=== PATIENT | female | born 1985 | race Asian ===

== ENCOUNTER 2025-01-05 17:18 | Inpatient (IN) ==
[2025-01-05 17:46] LABS: HCT - HEMATOCRIT 38.9 % (37.0-47.0); HGB - HEMOGLOBIN 13.0 g/dL (12.0-16.0); MEAN PLATELET VOLUME 9.9 fL (7.9-10.8); NRBC ABSOLUTE COUNT (AUTO) 0.00 x10^3/uL; NUCLEATED RED BLOOD CELLS AUTO 0.0 /100WBC; PLT - PLATELET COUNT 214 10^3/uL (130-450); RED CELL DISTRIBUTION WIDTH 13.2 % (12.0-15.0)
[2025-01-05 18:04] LABS: ALT ALANINE AMINOTRANSFERASE 16.0 IU/L (10-60); AST ASPARTATE AMINOTRANSFERASE 25.0 IU/L (10-42); BUN - BLOOD UREA NITROGEN 12.0 mg/dL (6-20); CARBON DIOXIDE - CO2 25.0 mmol/L (21-32); CREATININE 0.9 mg/dL (0.6-1.3); GFR - MDRD 70.0 (>89)
[2025-01-05] MEDS ORDERED: SODIUM CHLORIDE FLUSH 0.9% 10 ML SYRINGE IVP PRN (19:16)
[2025-01-05] MEDS ORDERED: hydrALAZINE INJ 20 MG/ML VIAL IVP PRN (19:16)
[2025-01-05] MEDS ORDERED: LABETALOL 20 MG/4 ML SYRINGE IVP PRN ×3 (19:16)
[2025-01-05] MEDS ORDERED: fentaNYL 100 MCG/2 ML VIAL IVP PRN (19:20)
[2025-01-05] MEDS ORDERED: OXYTOCIN 10 UNIT/ML VIAL IM PRN (19:20)
[2025-01-05] MEDS ORDERED: TERBUTALINE 1 MG/ML VIAL SUBQ PRN (19:20)
[2025-01-05] MEDS ORDERED: CARBOPROST TROMETHAMINE 250 MCG/ML VIAL IM PRN (19:20)
[2025-01-05] MEDS ORDERED: LACTATED RINGERS 1,000 ML IV PRN (19:20)
[2025-01-05 19:27] LABS: GLUCOSE, URINE (UA) NEGATIVE (NEGATIVE); KETONES,URINE (UA) NEGATIVE (NEGATIVE); OCCULT BLOOD,URINE NEGATIVE (NEGATIVE)
[2025-01-05] MEDS ORDERED: FLUTICASONE NASAL SPRAY NAS PRN (19:28)
--- NOTE | 2025-01-05 19:31 | HISTORY & PHYSICAL EXAMINATION ---
Admit History : 1 Parity: 0 Premature: 0 Ectopic: 0 : 0 Care: positive [facility] Risk/History: positive None Complications This : positive Pre-eclampsia and Other (Advanced maternal age) Smoking Status: Never smoker Mother's Labs Mother's Blood Type: positive B Mother's RH: positive Positive GBS: positive Group B Strep Positive Rubella Status: positive Immune Other Maternal History Other Maternal History: Patient is a 39 yo at 38+5 wks, who came in to [facility] triage today for NST, serial BP's, and repeat preE labs. She saw Dr. Marcelino yesterday and previously had a dx of suspected gestational HTN. Yesterday, she had a new elevated urine prot/cr at 0.3. In triage today, BP's persistently 140s/90s with outlier 150 SBP and 103 DBP. Patient without headache, concerning visual changes, or abdominal pain. She denies regular/painful ctx, leakage of fluid, vaginal bleeding, or movement concerns. Specific Issues/Plans In the event of an emergency, ACCEPTS the administration of blood products OB hx: Medical Hx: no issues Surgical Hx: no surgery Social Hx: from [facility], one of 10 daughters. Norm is in [employer]. first baby for both. Family Hx: ischemic heart disease, hypertension mother Allergies: none Medications: ASA, PNV, LMP:04/09/2024 RYDER by LMP: 01/14/2025 U/S: Final RYDER: 01/13/2025 Pre- weight: 97 BMI: 22.31 Blood type: B+ Antibody screen: neg CBC: PLT HCT HGB 11.8/35.7 262 Rubella: immune VZV: immune HBsAg: Neg HepC: Neg RPR/AB-EIA: not done, was ordered HIV: Neg Flu: COVID: PAP: 06/13/24 WNL HPV neg GC/CT: neg HSV: denies self/partner Genetic Testing: AFP neg Mat21 neg, male FAS: 08/29/24 Placenta: anterior, no previa Cord: 3VC REMIGIO: WNL EFW: na per report EPDS: 2 50gm GCT: 93 3 hr GTT: TDAP: 11/15/2024 Breast Pump: has one 3rd trimester H/H 14.2/40.9 PLT 318 3rd trimester RPR: NR RSV: out of range GBS: POSITIVE Delivery plan: contraception:Natural family-planning/condoms HPI Current : Current EDU 01/14/25 Gestation 38 Weeks and 5 Days Vital Signs Pulse Rate 60 01/05/25 17:37 Respiratory Rate 16 01/05/25 17:37 NST Procedure NST Procedure: NST Procedure Start Date 01/05/25 Start Time 17:35 Stop Time 18:10 Vibroacoustic Stimulation Used No Patient States Movement Yes Results and Plan Findings/Impression: Baseline 130s, mod variability, + accels, no decels Tower: Rare/infrequent ctx noted Meds/Allgy Home Medications Ambulatory Orders Medication Instructions Recorded Confirmed aspirin 81 mg tablet,delayed 81 mg PO QDAY 11/30/24 release (Adult Aspirin Regimen) docusate calcium 240 mg capsule 240 mg PO QDAY 5 01/04/25 docusate sodium 100 mg capsule 100 mg PO QDAY 11/30/24 01/04/25 (Colace) fluticasone propionate 50 1 spray intranasal QDAY PRN 11/30/24 01/04/25 mcg/actuation nasal spray,suspension (Flonase Allergy Relief) loratadine 10 mg tablet (Claritin) 10 mg PO Q24H 11/3001/04/25 vitamins-iron fumarate 65 1 tab PO QAM 01/04/25 mg iron-folic acid 1 mg tablet Allergies Allergies Allergy/AdvReac Type Severity Reaction Status Date / Time No Known Drug Allergies Allergy Verified 12/31/24 14:43 PFSH Active Problems All Active Problems (Updated 01/05/25 @ 19:44 by Beth Naranjo MD) Group B streptococcal carriage complicating (Acute) Elderly primigravida in third trimester (Acute) 38 weeks gestation of (Acute) Pre-eclampsia in third trimester (Acute) Supervision of elderly primigravida (Acute) 37 weeks gestation of (Acute) Elevated blood pressure reading without diagnosis of hypertension (Acute) Medical History Medical History (Updated 01/05/25 @ 19:44 by Beth Naranjo MD) Family history of ischemic heart disease Exposure to chickenpox Family History Family History (Updated 12/04/24 @ 13:50 by Debbie Santos RN) Maternal grandmother High blood pressure Mother High blood pressure Father Diabetes Social History Social History (Updated 11/30/24 @ 14:31 by Sara Smith MA) Smoking Status: Never smoker Second hand tobacco smoke exposure: No Do you dip or chew tobacco?: No Do you vape?: No Living arrangement: At home Marital Status: Living Condition: With spouse/s.o. ETOH Use: None POLST Patient has POLST: No POLST CPR Status: Attempt Resuscitation (CPR) Level of Medical Intervention: Full Treatment Review of Systems Status of ROS: 10 or more systems reviewed and unremarkable except as noted in history and below Physical Abdominal Exam Vital Signs: Pulse Resp 60 16 01/05/25 17:37 01/05/25 17:37 Contraction Frequency (min/apart): Rare to no contractions Monitoring Heart Rate Baseline: 130s Strip Review: positive Category I Presentation Presentation: positive Vertex (Limited bedside US performed to verify cephalic; REMIGIO 9.3 cm) Vaginal Exam Membranes: positive Membranes intact Dilation (in cm): 1.5 Effacement (%): 50 Station: positive -3 Cervical Position: positive Midposition Speculum Exam Speculum Exam Performed: positive Yes Other Notes Labor Progress Note/Additional Text: OB Limited US: Cephalic presentation, LOT with spine at maternal left. REMIGIO 9.3 cm. Procedure note for insertion of cervical ripening balloon: discussed procedure, and consent form reviewed and signed. Attempted insertion digitally but unable to fully pass balloon through cervix. Spec then inserted, and cervix swabbed with betadine x 3. Balloon then passed easily using a ring forcep. Balloon filled with 30 ml of sterile water, then gently pulled caudad to ensure balloon resting at inner cervix. Speculum was removed, and digital exam verified intrauterine placement. Moderate bloody show was noted after insertion then stopped (approx 10 ml). No ongoing blood loss noted. Pt tolerated procedure well and had mild discomfort at RLQ afterwards (expected following insertion). No complications occurred. Plan for Labor Plan For Labor I expect patient to be DC'd or transferred within 96 hours.: Yes Plan for Labor: Planning natural as much as possible Conclusion/Plan Problem List (1) Pre-eclampsia in third trimester: Plan: at 38+5 wks with preeclampsia without severe features. Given gestational age > 37 wks, induction of labor recommended. Pt favoring natural childbirth and had wished to await natural onset of labor. I reviewed with her and her partner the potential complications of preeclampsia (eclampsia; severe HTN that could lead to stroke, heart attack, and/or placental abruption; and/or development of end-organ disease [HELLP]). With that, we discussed recommended medical induction/labor course and reviewed alternatives being membrane sweeping only, outpatient cervical ripening with balloon (with plan to start induction in hospital after 12 hrs), or medical induction tonight. The patient favored the balloon but was worried about risk of ROM, bleeding, or concerns. We then discussed placement of balloon then admission to Observation in hospital for intermittent monitoring in case she has pain or concerns. She opted for this plan, and cervical ripening balloon was placed at 1905 without complications. - Admit to Observation; if patient desires, may d/c to home tonight for comfort (if tracing and BP's reassuring) but plan to initiate medical induction vs augmentation tomorrow morning. Admit to Inpatient at that time. - Maintain ripening balloon for 12 hrs or less with plan to remove in morning if it has not passed spontaneously by that time. - Intermittent monitoring Q 4 hrs overnight, then plan for continuous monitoring if medical interventions started. - Place IV and obtain admission labs: type and screen, RPR. - Repeat CMP, CBC in am - OB admission orders completed, including prn pain medications and antihypertensives - GBS prophylaxis with Ampicillin ordered to start once in active labor or SROM occurs. (2) Group B streptococcal carriage complicating : (3) Elderly primigravida in third trimester: (4) 38 weeks gestation of : Lab Results Lab results reviewed: Yes 01/05/25 17:41 01/05/25 17:41
[2025-01-05 19:32] LABS: SQUAMOUS EPITHELIAL CELL,UR FEW Squamous (<= Few)
[2025-01-05] MEDS ORDERED: CETIRIZINE 10 MG TABLET PO PRN (19:34)
[2025-01-05] MEDS ORDERED: MORPHINE 10 MG/ML VIAL IM PRN (19:56)
[2025-01-05] MEDS ORDERED: PROCHLORPERAZINE 10 MG/2 ML VIAL IVP PRN (19:56)
[2025-01-05] MEDS ORDERED: NALBUPHINE 10 MG/ML AMP IVP PRN (20:12)
[2025-01-05] MEDS ORDERED: ACETAMINOPHEN 650 MG SUPP PR PRN (20:12)
[2025-01-05] MEDS ORDERED: NIFEdipine ER 30 MG TABLET PO SCH (20:15)
[2025-01-05] MEDS: LABETALOL 100 MG TABLET PO SCH (20:47)
[2025-01-05] MEDS ORDERED: AMPICILLIN 1 GM in SODIUM CHLORIDE 0.9% MINIBAG 100 ML IV SCH (23:45)
[2025-01-06] MEDS ORDERED: AMPICILLIN 2 GM in SODIUM CHLORIDE 0.9% MINIBAG 100 ML IV ONE ×2 (01:45→07:15)
[2025-01-06] MEDS ORDERED: AMPICILLIN 1 GM in SODIUM CHLORIDE 0.9% MINIBAG 100 ML IV SCH (06:00)
[2025-01-06] MEDS: AMPICILLIN 2 GM in SODIUM CHLORIDE 0.9% MINIBAG 100 ML IV ONE (07:25)
[2025-01-06] MEDS ORDERED: BUPIVACAINE 0.25% PF 10 ML VIAL ONE (07:45)
[2025-01-06] MEDS ORDERED: fentaNYL 100 MCG/2 ML VIAL ONE ×2 (07:45→13:59)
[2025-01-06] MEDS ORDERED: ROPIVACAINE 0.2% 200 MG/100 ML BAG EP ONE (07:46)
[2025-01-06] MEDS ORDERED: ONDANSETRON 4 MG/2 ML VIAL ONE ×2 (08:05→14:33)
[2025-01-06] MEDS ORDERED: ONDANSETRON 4 MG/2 ML VIAL IVP PRN ×3 (08:11→16:25)
[2025-01-06] MEDS: ONDANSETRON 4 MG/2 ML VIAL IVP PRN (08:50)
[2025-01-06] MEDS: SODIUM CHLORIDE FLUSH 0.9% 10 ML SYRINGE IVP SCH (08:52)
[2025-01-06 09:24] LABS: HCT - HEMATOCRIT 39.4 % (37.0-47.0); HGB - HEMOGLOBIN 13.0 g/dL (12.0-16.0); MEAN PLATELET VOLUME 10.4 fL (7.9-10.8); NRBC ABSOLUTE COUNT (AUTO) 0.00 x10^3/uL; NUCLEATED RED BLOOD CELLS AUTO 0.0 /100WBC; PLT - PLATELET COUNT 205 10^3/uL (130-450); RED CELL DISTRIBUTION WIDTH 13.2 % (12.0-15.0)
[2025-01-06 09:49] LABS: ALT ALANINE AMINOTRANSFERASE 16.0 IU/L (10-60); AST ASPARTATE AMINOTRANSFERASE 27.0 IU/L (10-42); BUN - BLOOD UREA NITROGEN 12.0 mg/dL (6-20); CARBON DIOXIDE - CO2 22.0 mmol/L (21-32); CREATININE 0.8 mg/dL (0.6-1.3); GFR - MDRD 80.0 (>89)
[2025-01-06] MEDS ORDERED: METOCLOPRAMIDE 10 MG/2 ML VIAL IVP PRN (10:13)
[2025-01-06] MEDS ORDERED: ROPIVACAINE 0.2% 200 MG/100 ML BAG EP PRN (10:13)
[2025-01-06] MEDS ORDERED: NALOXONE 0.4 MG/ML VIAL IVP PRN ×3 (10:13→16:25)
[2025-01-06] MEDS ORDERED: ePHEDrine 50 MG/ML VIAL IVP PRN ×2 (10:13→16:25)
[2025-01-06] MEDS ORDERED: NALBUPHINE 10 MG/ML AMP IVP PRN (10:13)
--- NOTE | 2025-01-06 10:25 | PROVIDER PROGRESS NOTE ---
Labor Progress Note Uterine Monitoring Uterine Monitoring Mode: positive External toco Contraction Frequency (min/apart): Q 6-7 min Contraction Intensity: positive Moderate Uterine Resting Tone: positive Soft Monitoring Monitor Mode: positive External ultrasound Heart Rate Baseline: 140 Heart Rate Variability: positive Minimal (0-5 bpm) Accelerations: positive Absent (10 x 30 sec accel noted during cervical exam) Decelerations: positive Early, Late and Recurrent (>50% x20 min) Strip Review: positive Category II (Intermittent then more frequent early decels noted until approx 0900; since epidural insertion, recurrent late decels noted) Vaginal Exam Dilation (in cm): 5.5 Effacement (%): 80 Station: 0 Cervical Position: Anterior Labor Progress Note Labor Progress Note/Additional Text: * S/ Overnight, patient had little rest due to painful contractions. She was given nitrous, then this morning requested an epidural. Silvestre fell out overnight, and she was 4/70/-2 around 0645 this morning. Epidural was placed around 0830. She noticed some fluid leakage around the time of the epidural, but her pad appeared dry. She is now comfortable but notes increased shaking. O/ Afeb, VS - BPs mildly to moderately elevated overnight, 110-120s/70s since e pidural, now returning to mildly elevated FHT: Baseline 140's now with absent to minimal variability. Recurrent lates were present, and IVF bolus 500 ml given. Ephedrine considered, then BP started to return to pre-epidural. Lates now improving and some with early decel appearance [place]: Ctx Q 6-7 min, now Q 3-4 spontaneously Cvx: 5.5/80/0; unable to palpate amnion; 10 x 30 sec accel noted at time of cervical exam AM labs: see chart; no acute changes in PLT, LFTs, or creatining A/P 38+6 wks here for IOL for preE without severe features. Induction initiated with cervical ripening balloon, now progressing spontaneously without medical intervention and following suspected SROM around 0830. Pt having tremors suggestive of transition and may be rapidly progressing in labor. FHT cat 2 - currently absent to minimal variability but decels have resolved. BP nml to mildly elevated at present. Ordered labetalol 200 mg tid last evening, and last dose was around 0600 this morning. - O2 (5-6 L via NRB) in place and will continue until FHT improves - Ampicillin started for GBS pos; dose #2 due at 1100 - If no improvement in variability, consider repeat cervical exam 1 hr from last to attempt scalp stim - Cont BP monitoring; no severe pressures noted. To avoid recurrent relative hypotension, hold labetalol dose unless persistently 140/90s or more.
[2025-01-06] MEDS: AMPICILLIN 1 GM in SODIUM CHLORIDE 0.9% MINIBAG 100 ML IV SCH (11:12)
[2025-01-06] MEDS ORDERED: ACETAMINOPHEN 650 MG SUPP PR PRN (11:44)
--- NOTE | 2025-01-06 11:48 | PROVIDER PROGRESS NOTE ---
Subjective Prog Note Date Prog Note Date: 01/06/25 Prog Note Time: 11:46 Subjective Subjective: S/ Patient comfortable but continues to have persistent tremors. She notes some slight increased pain/pressure at the lower abdomen. O/ T 102, VS - BPs mildly elevated FHT: Baseline 150-160's still with absent to minimal variability. No recurrent decels present. + scalp stim (10 bpm x 1 min) during exam. [place]: Ctx Q 2-3 min spontaneously Cvx: 7/80/0; small gush of watery discharge present (blood-tinged); 10 x 60 sec accel noted at time of cervical exam A/ (1) 38+6 wks here for IOL for preE without severe features. Progressing very well spontaneously since cervical ripening balloon out and SROM around 0830 this am. FHT cat 2 (absent to min variability, but decels have resolved, and scalp stim noted on exam). (2) Fever 102 with rising heart rate baseline - suspect intra-amniotic infection (3) BPs mildly elevated with no si/sx of preE with severe features P/ - Cont Ampicillin. Add gentamicin 5 mg/kg for tx of chorio. Tylenol 1000 mg PO now + ice packs to improve decrease maternal temp. This may also help improve FHT. Discussed dx with patient and spouse and likelihood that the baby will require antibiotics after . - Cont BP monitoring; no severe pressures noted. To avoid recurrent relative hypotension, hold labetalol dose unless persistently 140/90s or more. Current Medications Current Medications Current Medications: Current Medications Generic Name Dose Route Start Last Admin Trade Name Freq PRN Reason Stop Dose Admin Acetaminophen 650 mg 01/05/25 20:12 Acetaminophen 650 Mg Supp CO Q6HR PRN Pain or Fever > 38C (100.4F) Carboprost Tromethamine 250 mcg 01/05/25 19:20 Carboprost Tromethamine 250 Mcg/Ml Vial IM .ONCE PRN Hemorrhage Cetirizine HCl 10 mg 01/05/25 19:34 Cetirizine 10 Mg Tablet PO Q24H PRN Allergy Symptoms Diphenhydramine HCl 12.5 - 25 mg 01/06/25 10:13 Diphenhydramine Inj 50 Mg/Ml Vial IVP Q6HR PRN ITCHING Ephedrine Sulfate 5 mg 01/06/25 10:13 Ephedrine 50 Mg/Ml Vial IVP Q5M PRN For SBP<100;give until SBP>100 Fentanyl 50 mcg 01/05/25 19:20 Fentanyl 100 Mcg/2 Ml Vial IVP Q1H PRN Severe Pain (score 7-10) Fluticasone Propionate 1 sprays 01/05/25 19:28 Fluticasone Nasal [place] WALTER DAILY PRN Allergy Symptoms Hydralazine HCl 10 mg 01/05/25 19:16 Hydralazine Inj 20 Mg/Ml Vial IVP .ONCE PRN SBP> or= 160 OR DBP> or= 110 Hydralazine HCl 5 - 10 mg 01/05/25 19:16 Hydralazine Inj 20 Mg/Ml Vial IVP Q20M PRN SBP> or= 160 OR DBP> or= 110 Protocol Lactated Ringer's 500 mls @ 999 mls/hr 01/05/25 19:20 Lr IV PRN PRN Heart Rate Abnormalities Oxytocin/Sodium Chloride 500 mls @ 999 mls/hr 01/05/25 19:20 Pitocin/Sodium Chloride IV PRN PRN POST- HEMORR PREVENTION Protocol 999 MILLIUNIT/MIN Tranexamic Acid 1,000 mg in 100 mls @ 600 mls/hr 01/05/25 19:20 Tranexamic 1,000 Mg/100ml-Nacl IV Q30M PRN EBL >1200mL and within 3hr Ampicillin Sodium 1 gm/ Sodium 100 mls @ 200 mls/hr 01/06/25 12:00 01/06/25 11:12 Chloride IV 200 mls/hr Q4H JONH Administration Ropivacaine 200 mg in 100 mls @ 0 mls/hr 01/06/25 10:13 Naropin 0.2% EP PRN PRN PAIN Protocol Per Protocol Labetalol HCl 20 mg 01/05/25 19:16 Labetalol 20 Mg/4 Ml Syringe IVP .ONCE PRN SBP> or= 160 OR DBP> or= 110 Labetalol HCl 20 - 80 mg 01/05/25 19:16 Labetalol 20 Mg/4 Ml Syringe IVP Q10M PRN SBP> or= 160 OR DBP> or= 110 Protocol Labetalol HCl 20 - 40 mg 01/05/25 19:16 Labetalol 20 Mg/4 Ml Syringe IVP Q10M PRN SBP> or= 160 OR DBP> or= 110 Protocol Labetalol HCl 200 mg 01/05/25 20:15 01/06/25 06:58 Labetalol 100 Mg Tablet PO 200 mg TID JONH Administration Lidocaine HCl 20 ml 01/05/25 19:20 Lidocaine 1% 20 Ml Mdv ID 01/08/25 19:21 .ONCE PRN PERINEAL REPAIR Metoclopramide HCl 10 mg 01/06/25 10:13 Metoclopramide 10 Mg/2 Ml Vial IVP Q6HR PRN Nausea / Vomiting Misoprostol 600 mcg 01/05/25 19:20 Misoprostol 200 Mcg Tablet BC .ONCE PRN Hemorrhage Misoprostol 800 mcg 01/05/25 19:20 Misoprostol 200 Mcg Tablet CO .ONCE PRN Hemorrhage Nalbuphine HCl 5 mg 01/05/25 20:12 Nalbuphine 10 Mg/Ml Amp IVP 01/06/25 20:11 ONCE PRN pain Nalbuphine HCl 2.5 - 5 mg 01/06/25 10:13 Nalbuphine 10 Mg/Ml Amp IVP Q4H PRN ITCHING Naloxone HCl 0.1 mg 01/06/25 10:13 Naloxone 0.4 Mg/Ml Vial IVP Q2M PRN RR<8 Nifedipine 10 - 20 mg 01/05/25 19:16 Nifedipine 10 Mg Capsule PO Q20M PRN SBP> or= 160 OR DBP> or= 110 Protocol Ondansetron HCl 4 mg 01/06/25 08:10 01/06/25 08:50 Ondansetron 4 Mg/2 Ml Vial IVP 4 mg Q4HR PRN Administration Nausea / Vomiting Ondansetron HCl 4 mg 01/06/25 10:13 Ondansetron 4 Mg/2 Ml Vial IVP Q6HR PRN Nausea / Vomiting Oxytocin 10 unit 01/05/25 19:20 Oxytocin 10 Unit/Ml Vial IM .ONCE PRN Step One if no IV access. Multivit/Folic Acid/Iron 1 tab 01/06/25 08:00 Vitamin Tablet PO DAILYWM OJNH Sodium Chloride 10 ml 01/05/25 20:00 01/06/25 08:52 Sodium Chloride Flush 0.9% 10 Ml Syringe IVP 10 ml Q8H JONH Administration Sodium Chloride 10 ml 01/05/25 19:16 Sodium Chloride Flush 0.9% 10 Ml Syringe IVP PRN PRN NEEDED PER PROVIDER ORDERS Terbutaline Sulfate 0.25 mg 01/05/25 19:20 Terbutaline 1 Mg/Ml Vial SUBQ .ONCE PRN Tachystole Objective Vital Signs/Intake & Output Vital Signs: Vital Signs x48h Temp Pulse Resp BP 01/06/25 09:30 37.1 C 79 16 120/81 Intake & Output: Intake & Output 01/03/25 01/04/25 01/05/25 01/06/25 23:59 23:59 23:59 23:59 Intake Total 200 / 200 100 / 100 Output Total 100 / 100 Balance 100 / 100 100 / 100 Weight (kg) 56.6 kg 56.699 kg Lab Results 01/06/25 08:48 01/06/25 08:48 Other Labs: Lab Results x24hrs 01/06/25 01/05/25 01/05/25 Range/Units 08:48 21:00 18:25 WBC 13.4 H (4.8-10.8) x10^3/uL RBC 4.25 (4.20-5.40) 10^6/uL Hgb 13.0 (12.0-16.0) g/dL Hct 39.4 (37.0-47.0) % MCV 92.7 (81.0-99.0) fL MCH 30.6 (27.0-31.0) pg MCHC 33.0 (32.0-36.0) g/dL RDW 13.2 (12.0-15.0) % Plt Count 205 (130-450) 10^3/uL MPV 10.4 (7.9-10.8) fL Neut # (Auto) 11.6 H (1.5-6.6) 10^3/uL Lymph # (Auto) 1.0 L (1.5-3.5) 10^3/uL [place] # (Auto) 0.5 (0.0-1.0) 10^3/uL Eos # (Auto) 0.2 (0.0-0.7) 10^3/uL Baso # (Auto) 0.0 (0.0-0.1) 10^3/uL Absolute Nucleated RBC 0.00 x10^3/uL Nucleated RBC % 0.0 /100WBC Sodium 131 L (135-145) mmol/L Potassium 3.8 (3.5-4.5) mmol/L Chloride 101 (101-111) mmol/L Carbon Dioxide 22 (21-32) mmol/L Anion Gap 8.0 (6-13) BUN 12 (6-20) mg/dL Creatinine 0.8 (0.6-1.3) mg/dL Estimated GFR (MDRD) 80 L (>89) Glucose 121 H (74-104) mg/dL Calcium 8.3 L (8.5-10.3) mg/dL Total Bilirubin 0.4 (0.2-1.0) mg/dL AST 27 (10-42) IU/L ALT 16 (10-60) IU/L Alkaline Phosphatase 170 H (42-121) IU/L Total Protein 6.5 (6.4-8.9) g/dL Albumin 3.5 (3.2-5.5) g/dL Globulin 3.0 (2.1-4.2) g/dL Albumin/Globulin Ratio 1.2 (1.0-2.2) Urine Color YELLOW Urine Clarity CLEAR (CLEAR) Urine pH 7.5 (5.0-7.5) PH Ur Specific [place] 1.010 (1.002-1.030) Urine Protein NEGATIVE (NEGATIVE) mg/dL Urine Glucose (UA) NEGATIVE (NEGATIVE) mg/dL Urine Ketones NEGATIVE (NEGATIVE) mg/dL Urine Occult Blood NEGATIVE (NEGATIVE) Urine Nitrite NEGATIVE (NEGATIVE) Urine Bilirubin NEGATIVE (NEGATIVE) Urine Urobilinogen 0.2 (NORMAL) (NORMAL) E.U./dL Ur Leukocyte Esterase MODERATE H (NEGATIVE) Urine RBC None Seen (0-5) /HPF Urine WBC 6-10 H (0-5) /HPF Ur Squamous Epith Cells FEW Squamous (<= Few) Urine Bacteria Many H (None Seen) /HPF Ur Microscopic Review INDICATED Blood Type B POSITIVE Blood Type Recheck Antibody Screen NEGATIVE 01/05/25 Range/Units 17:41 WBC 6.9 (4.8-10.8) x10^3/uL RBC 4.22 (4.20-5.40) 10^6/uL Hgb 13.0 (12.0-16.0) g/dL Hct 38.9 (37.0-47.0) % MCV 92.2 (81.0-99.0) fL MCH 30.8 (27.0-31.0) pg MCHC 33.4 (32.0-36.0) g/dL RDW 13.2 (12.0-15.0) % Plt Count 214 (130-450) 10^3/uL MPV 9.9 (7.9-10.8) fL Neut # (Auto) 4.4 (1.5-6.6) 10^3/uL Lymph # (Auto) 1.9 (1.5-3.5) 10^3/uL [place] # (Auto) 0.5 (0.0-1.0) 10^3/uL Eos # (Auto) 0.1 (0.0-0.7) 10^3/uL Baso # (Auto) 0.0 (0.0-0.1) 10^3/uL Absolute Nucleated RBC 0.00 x10^3/uL Nucleated RBC % 0.0 /100WBC Sodium 136 (135-145) mmol/L Potassium 4.3 (3.5-4.5) mmol/L Chloride 104 (101-111) mmol/L Carbon Dioxide 25 (21-32) mmol/L Anion Gap 7.0 (6-13) BUN 12 (6-20) mg/dL Creatinine 0.9 (0.6-1.3) mg/dL Estimated GFR (MDRD) 70 L (>89) Glucose 93 (74-104) mg/dL Calcium 9.5 (8.5-10.3) mg/dL Total Bilirubin 0.3 (0.2-1.0) mg/dL AST 25 (10-42) IU/L ALT 16 (10-60) IU/L Alkaline Phosphatase 174 H (42-121) IU/L Total Protein 6.6 (6.4-8.9) g/dL Albumin 3.5 (3.2-5.5) g/dL Globulin 3.1 (2.1-4.2) g/dL Albumin/Globulin Ratio 1.1 (1.0-2.2) Urine Color Urine Clarity (CLEAR) Urine pH (5.0-7.5) PH Ur Specific [place] (1.002-1.030) Urine Protein (NEGATIVE) mg/dL Urine Glucose (UA) (NEGATIVE) mg/dL Urine Ketones (NEGATIVE) mg/dL Urine Occult Blood (NEGATIVE) Urine Nitrite (NEGATIVE) Urine Bilirubin (NEGATIVE) Urine Urobilinogen (NORMAL) E.U./dL Ur Leukocyte Esterase (NEGATIVE) Urine RBC (0-5) /HPF Urine WBC (0-5) /HPF Ur Squamous Epith Cells (<= Few) Urine Bacteria (None Seen) /HPF Ur Microscopic Review Blood Type Blood Type Recheck B POSITIVE Antibody Screen Assessment/Plan Problem List (1) Pre-eclampsia in third trimester: (2) Group B streptococcal carriage complicating : (3) Elderly primigravida in third trimester: (4) 38 weeks gestation of :
[2025-01-06] MEDS: ACETAMINOPHEN 500 MG TABLET PO PRN (12:02)
[2025-01-06] MEDS: GENTAMICIN IV ONE (12:34)
[2025-01-06] MEDS: SODIUM CHLORIDE 0.9% IV ONE (12:34)
[2025-01-06] MEDS: LACTATED RINGERS 1,000 ML IV SCH (12:45)
--- NOTE | 2025-01-06 14:07 | PROVIDER PROGRESS NOTE ---
Subjective Prog Note Date Prog Note Date: 01/06/25 Prog Note Time: 14:03 Subjective Subjective: S/ Patient comfortable. O/ T 103, VS - BPs mildly elevated FHT: Baseline 170's still with absent to minimal variability, now with late decels> 50% of contractions; no scalp stim during exam. [place]: Ctx Q 2-3 min spontaneously Cvx: 7/80/0 (no change x 2 hrs); A/ (1) 38+6 wks here for IOL for preE without severe features. Previously progressing very well spontaneously, now with protracted labor but unable to augment with cat 2-3 FHT. Recommend delivery at this time. (2) Chorioamnionitic - received Tylenol, ice packs but still febrile. Gent administered, and already on Amp for GBS pos. (3) PreE: BPs mildly elevated with no si/sx of preE with severe features P/ - To OR expeditiously for primary . Procedure, expectations, and risks reviewed. Consent form signed. - Preop antibiotics: Clinda 900 mg and Azithro 500 mg IV events traffic controller to OR. - PPH risk moderate: plan for uterotonics in OR and TXA at cord clamp; avoid methergine due to preE/HTN Current Medications Current Medications Current Medications: Current Medications Generic Name Dose Route Start Last Admin Trade Name Robbyq PRN Reason Stop Dose Admin Acetaminophen 1,000 mg 01/06/25 11:58 01/06/25 12:02 Acetaminophen 500 Mg Tablet PO 1,000 mg Q6HR PRN Administration Pain or Fever > 38C (100.4F) Carboprost Tromethamine 250 mcg 01/05/25 19:20 Carboprost Tromethamine 250 Mcg/Ml Vial IM .ONCE PRN Hemorrhage Cetirizine HCl 10 mg 01/05/25 19:34 Cetirizine 10 Mg Tablet PO Q24H PRN Allergy Symptoms Citric Acid/Sodium Citrate 30 ml 01/06/25 13:59 Citric Acid/Sodium Citrate 15 Ml Udc PO 01/06/25 14:00 .ONCE ONE Diphenhydramine HCl 12.5 - 25 mg 01/06/25 10:13 Diphenhydramine Inj 50 Mg/Ml Vial IVP Q6HR PRN ITCHING Ephedrine Sulfate 5 mg 01/06/25 10:13 Ephedrine 50 Mg/Ml Vial IVP Q5M PRN For SBP<100;give until SBP>100 Fentanyl 50 mcg 01/05/25 19:20 Fentanyl 100 Mcg/2 Ml Vial IVP Q1H PRN Severe Pain (score 7-10) Fluticasone Propionate 1 sprays 01/05/25 19:28 Fluticasone Nasal [place] WALTER DAILY PRN Allergy Symptoms Hydralazine HCl 10 mg 01/05/25 19:16 Hydralazine Inj 20 Mg/Ml Vial IVP .ONCE PRN SBP> or= 160 OR DBP> or= 110 Hydralazine HCl 5 - 10 mg 01/05/25 19:16 Hydralazine Inj 20 Mg/Ml Vial IVP Q20M PRN SBP> or= 160 OR DBP> or= 110 Protocol Lactated Ringer's 500 mls @ 999 mls/hr 01/05/25 19:20 Lr IV PRN PRN Heart Rate Abnormalities Oxytocin/Sodium Chloride 500 mls @ 999 mls/hr 01/05/25 19:20 Pitocin/Sodium Chloride IV PRN PRN POST- HEMORR PREVENTION Protocol 999 MILLIUNIT/MIN Tranexamic Acid 1,000 mg in 100 mls @ 600 mls/hr 01/05/25 19:20 Tranexamic 1,000 Mg/100ml-Nacl IV Q30M PRN EBL >1200mL and within 3hr Ampicillin Sodium 1 gm/ Sodium 100 mls @ 200 mls/hr 01/06/25 12:00 01/06/25 13:45 Chloride IV Infused Q4H JONH Infusion Ropivacaine 200 mg in 100 mls @ 0 mls/hr 01/06/25 10:13 Naropin 0.2% EP PRN PRN PAIN Protocol Per Protocol Lactated Ringer's 1,000 mls @ 125 mls/hr 01/06/25 14:00 01/06/25 12:45 Lr IV 125 mls/hr .Q8H JONH Administration Clindamycin/Sodium Chloride 900 mg in 50 mls @ 50 mls/hr 01/06/25 14:00 Cleocin 900 Mg/50 Ml IV 01/06/25 14:59 ONCE ONE Azithromycin 500 mg/ Sodium 250 mls @ 250 mls/hr 01/06/25 13:59 Chloride IV 01/06/25 14:58 ONCE ONE Labetalol HCl 20 mg 01/05/25 19:16 Labetalol 20 Mg/4 Ml Syringe IVP .ONCE PRN SBP> or= 160 OR DBP> or= 110 Labetalol HCl 20 - 80 mg 01/05/25 19:16 Labetalol 20 Mg/4 Ml Syringe IVP Q10M PRN SBP> or= 160 OR DBP> or= 110 Protocol Labetalol HCl 20 - 40 mg 01/05/25 19:16 Labetalol 20 Mg/4 Ml Syringe IVP Q10M PRN SBP> or= 160 OR DBP> or= 110 Protocol Labetalol HCl 200 mg 01/05/25 20:15 01/06/25 06:58 Labetalol 100 Mg Tablet PO 200 mg TID JONH Administration Lidocaine HCl 20 ml 01/05/25 19:20 Lidocaine 1% 20 Ml Mdv ID 01/08/25 19:21 .ONCE PRN PERINEAL REPAIR Metoclopramide HCl 10 mg 01/06/25 10:13 Metoclopramide 10 Mg/2 Ml Vial IVP Q6HR PRN Nausea / Vomiting Misoprostol 600 mcg 01/05/25 19:20 Misoprostol 200 Mcg Tablet BC .ONCE PRN Hemorrhage Misoprostol 800 mcg 01/05/25 19:20 Misoprostol 200 Mcg Tablet IN .ONCE PRN Hemorrhage Nalbuphine HCl 5 mg 01/05/25 20:12 Nalbuphine 10 Mg/Ml Amp IVP 01/06/25 20:11 ONCE PRN pain Nalbuphine HCl 2.5 - 5 mg 01/06/25 10:13 Nalbuphine 10 Mg/Ml Amp IVP Q4H PRN ITCHING Naloxone HCl 0.1 mg 01/06/25 10:13 Naloxone 0.4 Mg/Ml Vial IVP Q2M PRN RR<8 Nifedipine 10 - 20 mg 01/05/25 19:16 Nifedipine 10 Mg Capsule PO Q20M PRN SBP> or= 160 OR DBP> or= 110 Protocol Ondansetron HCl 4 mg 01/06/25 08:10 01/06/25 08:50 Ondansetron 4 Mg/2 Ml Vial IVP 4 mg Q4HR PRN Administration Nausea / Vomiting Ondansetron HCl 4 mg 01/06/25 10:13 Ondansetron 4 Mg/2 Ml Vial IVP Q6HR PRN Nausea / Vomiting Oxytocin 10 unit 01/05/25 19:20 Oxytocin 10 Unit/Ml Vial IM .ONCE PRN Step One if no IV access. Multivit/Folic Acid/Iron 1 tab 01/06/25 08:00 Vitamin Tablet PO DAILYWM OJNH Sodium Chloride 10 ml 01/05/25 20:00 01/06/25 08:52 Sodium Chloride Flush 0.9% 10 Ml Syringe IVP 10 ml Q8H JONH Administration Sodium Chloride 10 ml 01/05/25 19:16 Sodium Chloride Flush 0.9% 10 Ml Syringe IVP PRN PRN NEEDED PER PROVIDER ORDERS Terbutaline Sulfate 0.25 mg 01/05/25 19:20 Terbutaline 1 Mg/Ml Vial SUBQ .ONCE PRN Tachystole Objective Vital Signs/Intake & Output Vital Signs: Vital Signs x48h Temp Pulse Resp BP 01/06/25 09:30 37.1 C 79 16 120/81 Intake & Output: Intake & Output 01/03/25 01/04/25 01/05/25 01/06/25 23:59 23:59 23:59 23:59 Intake Total 200 / 200 306.375 / 306.375 Output Total 100 / 100 Balance 100 / 100 306.375 / 306.375 Weight (kg) 56.6 kg 56.699 kg Lab Results 01/06/25 08:48 01/06/25 08:48 Other Labs: Lab Results x24hrs 01/06/25 01/05/25 01/05/25 Range/Units 08:48 21:00 18:25 WBC 13.4 H (4.8-10.8) x10^3/uL RBC 4.25 (4.20-5.40) 10^6/uL Hgb 13.0 (12.0-16.0) g/dL Hct 39.4 (37.0-47.0) % MCV 92.7 (81.0-99.0) fL MCH 30.6 (27.0-31.0) pg MCHC 33.0 (32.0-36.0) g/dL RDW 13.2 (12.0-15.0) % Plt Count 205 (130-450) 10^3/uL MPV 10.4 (7.9-10.8) fL Neut # (Auto) 11.6 H (1.5-6.6) 10^3/uL Lymph # (Auto) 1.0 L (1.5-3.5) 10^3/uL [place] # (Auto) 0.5 (0.0-1.0) 10^3/uL Eos # (Auto) 0.2 (0.0-0.7) 10^3/uL Baso # (Auto) 0.0 (0.0-0.1) 10^3/uL Absolute Nucleated RBC 0.00 x10^3/uL Nucleated RBC % 0.0 /100WBC Sodium 131 L (135-145) mmol/L Potassium 3.8 (3.5-4.5) mmol/L Chloride 101 (101-111) mmol/L Carbon Dioxide 22 (21-32) mmol/L Anion Gap 8.0 (6-13) BUN 12 (6-20) mg/dL Creatinine 0.8 (0.6-1.3) mg/dL Estimated GFR (MDRD) 80 L (>89) Glucose 121 H (74-104) mg/dL Calcium 8.3 L (8.5-10.3) mg/dL Total Bilirubin 0.4 (0.2-1.0) mg/dL AST 27 (10-42) IU/L ALT 16 (10-60) IU/L Alkaline Phosphatase 170 H (42-121) IU/L Total Protein 6.5 (6.4-8.9) g/dL Albumin 3.5 (3.2-5.5) g/dL Globulin 3.0 (2.1-4.2) g/dL Albumin/Globulin Ratio 1.2 (1.0-2.2) Urine Color YELLOW Urine Clarity CLEAR (CLEAR) Urine pH 7.5 (5.0-7.5) PH Ur Specific [place] 1.010 (1.002-1.030) Urine Protein NEGATIVE (NEGATIVE) mg/dL Urine Glucose (UA) NEGATIVE (NEGATIVE) mg/dL Urine Ketones NEGATIVE (NEGATIVE) mg/dL Urine Occult Blood NEGATIVE (NEGATIVE) Urine Nitrite NEGATIVE (NEGATIVE) Urine Bilirubin NEGATIVE (NEGATIVE) Urine Urobilinogen 0.2 (NORMAL) (NORMAL) E.U./dL Ur Leukocyte Esterase MODERATE H (NEGATIVE) Urine RBC None Seen (0-5) /HPF Urine WBC 6-10 H (0-5) /HPF Ur Squamous Epith Cells FEW Squamous (<= Few) Urine Bacteria Many H (None Seen) /HPF Ur Microscopic Review INDICATED Blood Type B POSITIVE Blood Type Recheck Antibody Screen NEGATIVE 01/05/25 Range/Units 17:41 WBC 6.9 (4.8-10.8) x10^3/uL RBC 4.22 (4.20-5.40) 10^6/uL Hgb 13.0 (12.0-16.0) g/dL Hct 38.9 (37.0-47.0) % MCV 92.2 (81.0-99.0) fL MCH 30.8 (27.0-31.0) pg MCHC 33.4 (32.0-36.0) g/dL RDW 13.2 (12.0-15.0) % Plt Count 214 (130-450) 10^3/uL MPV 9.9 (7.9-10.8) fL Neut # (Auto) 4.4 (1.5-6.6) 10^3/uL Lymph # (Auto) 1.9 (1.5-3.5) 10^3/uL [place] # (Auto) 0.5 (0.0-1.0) 10^3/uL Eos # (Auto) 0.1 (0.0-0.7) 10^3/uL Baso # (Auto) 0.0 (0.0-0.1) 10^3/uL Absolute Nucleated RBC 0.00 x10^3/uL Nucleated RBC % 0.0 /100WBC Sodium 136 (135-145) mmol/L Potassium 4.3 (3.5-4.5) mmol/L Chloride 104 (101-111) mmol/L Carbon Dioxide 25 (21-32) mmol/L Anion Gap 7.0 (6-13) BUN 12 (6-20) mg/dL Creatinine 0.9 (0.6-1.3) mg/dL Estimated GFR (MDRD) 70 L (>89) Glucose 93 (74-104) mg/dL Calcium 9.5 (8.5-10.3) mg/dL Total Bilirubin 0.3 (0.2-1.0) mg/dL AST 25 (10-42) IU/L ALT 16 (10-60) IU/L Alkaline Phosphatase 174 H (42-121) IU/L Total Protein 6.6 (6.4-8.9) g/dL Albumin 3.5 (3.2-5.5) g/dL Globulin 3.1 (2.1-4.2) g/dL Albumin/Globulin Ratio 1.1 (1.0-2.2) Urine Color Urine Clarity (CLEAR) Urine pH (5.0-7.5) PH Ur Specific [place] (1.002-1.030) Urine Protein (NEGATIVE) mg/dL Urine Glucose (UA) (NEGATIVE) mg/dL Urine Ketones (NEGATIVE) mg/dL Urine Occult Blood (NEGATIVE) Urine Nitrite (NEGATIVE) Urine Bilirubin (NEGATIVE) Urine Urobilinogen (NORMAL) E.U./dL Ur Leukocyte Esterase (NEGATIVE) Urine RBC (0-5) /HPF Urine WBC (0-5) /HPF Ur Squamous Epith Cells (<= Few) Urine Bacteria (None Seen) /HPF Ur Microscopic Review Blood Type Blood Type Recheck B POSITIVE Antibody Screen Assessment/Plan Problem List (1) Pre-eclampsia in third trimester: (2) Group B streptococcal carriage complicating : (3) Elderly primigravida in third trimester: (4) 38 weeks gestation of :
--- NOTE | 2025-01-06 14:11 | OPERATIVE REPORT ---
Operative Report General Admit Date: 01/06/25 Pre-Op Diagnosis: Nonreassuring FHT, chorioamnionitis, preeclampsia, PUND 38+6 Post Op Diagnosis: Same now s/p Procedure Note Intake, IV Amount (ml): 1,000 Estimated Blood Loss (ml): 655 Output, Urine Amount (ml): 150 Pathology: Placenta and cord gases Indications: Patient admitted for induction of labor at 38+6 wks for preeclampsia without severe features. Induction was initiated with cervical ripening balloon without medical therapy. Labetalol 200 mg PO tid was started to help manage blood pressures intrapartum. The ripening balloon fell out approx 6 hrs after insertion. She continued to contract painfully and requested an epidural about 12 hrs after admission. She was 4 cm dilated. Epidural was placed, and FHT, which was previously cat 1, started to have minimal variability with frequent late decels. She progressed to 5.5 cm within one hr, then 7 cm one hr after that. However, at the time of her next exam 2 hrs later, FHT continued to have minimal to absent variability and frequent late decels. No scalp stim could be obtained, and cervix remained 7 cm. was recommended for non- reassuring FHT, remote from delivery with cat 2-3 tracing. Emergent was called, then team assembled and the patient transferred to the OR for delivery. Findings: Meconium fluid noted at time of amniotomy. Viable male delivered from LOT position. No nuchal cord present. The baby had good tone but minimal cry and poor color on the maternal abdomen. Cord was clamped/cut quickly, and he was handed to Dr. Escudero, Rebar Bender. Cord gases and cord blood obtained. Venous cord gas was 7.16/-5. Lab unable to obtain arterial gas. Apgars were 4 at 1 min, 7 at 5 min, and 9 at 10 min. Placenta delivered and appeared bilobed vs succenturiate with vessels running in the membrane between the lobes of placenta tissue (sent to pathology due to chorio and abnormal gross appearance). Uterine tone was good following Pitocin x 1 and TXA. Tubes and ovaries not assessed intraoperatively, as uterus was repaired in situ. Complications: None Other Other Information/Narrative: Procedure: Low Transverse Section. Anesthesia: epidural, TAP Exchange Administrator: My child nutrition assistant, LOIDA Jimenez, was scrubbed and present during the entire procedure and assisted with visualization, hemostasis, fundal pressure for delivery, and closure. Procedure Details The risks, benefits, complications, treatment options, and expected outcomes were discussed with the patient. The patient concurred with the proposed plan, giving informed consent. The patient was taken to the Operating Room. Clindamycin 900 mg and 500 mg Azithromycin were given. She had already received Ampicillin and Gentamicin intrapartum, upon the diagnosis of chorioamnionitis. She had sequential compression devices on her lower extremities. Silvestre catheter was in place. Vaginal and abdominal prep was done. Time out was done. Drapes were placed. Anesthesia was tested and found to be adequate. A Pfannenstiel incision was made and carried down through the subcutaneous tissue to the fascia. Fascial incision was made and extended transversely. The fascia was from the underlying rectus tissue superiorly and inferiorly. The peritoneum was identified and entered. Peritoneal incision was stretched. The Sarkis retractor was placed and rolled down. A bladder flap was made sharply, then a low transverse uterine incision was made. The incision was stretched manually. Bag of water was entered during the process and fluid was meconium-stained. The baby was elevated through the incision. He was was dried and stimulated then handed to the Rebar Bender after cord clamp/cut (< 1 min delay due to poor color and respiratory effort. After the umbilical cord was clamped and cut, a cord segment was sent for gases, and cord blood was obtained for evaluation. The placenta was removed intact using gentle traction and had abnormal appearance as noted above. TXA was started at cord clamp. Oxytocin was infused in the IV. The uterine tone improved. The uterine incision was closed with running locked sutures of 0 Chromic suture. A second horizontal imbricating layer was placed with the same suture. Hemostasis was observed after an additional figure of eight suture. The Sarkis retractor was removed. The peritoneal gutters were wiped bilaterally with moist lap sponges. The peritoneum and rectus muscles were reapproximated with running nonlocked 2-0 vicryl. Rectus muscles were examined carefully for bleeding. The fascia was then reapproximated with running sutures of 0 Vicryl. The subcutaneous tissue was brought together with 2-0 Vicryl interrupted sutures, and the skin was closed with 4-0 Monocryl in subcuticular fashion. 1/4 inch steri-strips were placed over the wound. Bandage was placed. Uterus was expressed. Fundus was firm, and about 20 ml of blood and clot resulted. Patient was then returned to her LDRP in stable condition. Instrument, sponge, and needle counts were correct prior the abdominal closure and at the conclusion of the case. Drains: Silvestre catheter to gravity Complications: None; patient tolerated the procedure well. Disposition: back to her room on FBP for recovery. Condition: stable Plan: Routine post op care
[2025-01-06] MEDS ORDERED: CARBOPROST TROMETHAMINE 250 MCG/ML VIAL IM ONE (14:44)
[2025-01-06] MEDS ORDERED: PHENYLEPHRINE HCL 0.5 MG/5 ML AMPULE ONE ×2 (14:51→15:16)
[2025-01-06] MEDS ORDERED: ACETAMINOPHEN 1,000 MG/100 ML 1,000 MG/100 ML BAG IV ONE (15:05)
[2025-01-06] MEDS ORDERED: ROPIVACAINE 0.5% PF 20 ML VIAL ONE (15:11)
[2025-01-06] MEDS ORDERED: DEXAMETHASONE 4 MG/ML VIAL ONE (15:14)
[2025-01-06] MEDS ORDERED: OXYTOCIN/SODIUM CHLORIDE 500 ML IV PRN (16:02)
[2025-01-06] MEDS ORDERED: hydrALAZINE INJ 20 MG/ML VIAL IVP PRN ×2 (16:02)
[2025-01-06] MEDS ORDERED: LABETALOL 20 MG/4 ML SYRINGE IVP PRN ×3 (16:02)
[2025-01-06] MEDS ORDERED: oxyCODONE 5 MG TABLET PO PRN (16:02)
[2025-01-06] MEDS ORDERED: CALCIUM CARBONATE CHEW 500 MG TABLET PO PRN (16:02)
[2025-01-06] MEDS ORDERED: TRANEXAMIC ACID IN NACL 1,000 MG/100 ML BAG IV PRN (16:02)
[2025-01-06] MEDS ORDERED: CARBOPROST TROMETHAMINE 250 MCG/ML VIAL IM PRN (16:02)
[2025-01-06] MEDS ORDERED: ATROPINE ABBOJECT 1 MG/10 ML SYRINGE IVP PRN (16:25)
--- NOTE | 2025-01-06 16:43 | PHARMACY PROGRESS NOTE ---
Best Possible Medication History Admit Date and Time: 01/06/25 0725 Home Medications Medication Instructions Recorded Confirmed Type aspirin 81 mg tablet,delayed 81 mg PO QDAY 11/30/24 History release (Adult Aspirin Regimen) docusate calcium 240 mg capsule 240 mg PO QDAY 5 01/06/25 History docusate sodium 100 mg capsule 100 mg PO QDAY 11/30/24 01/06/25 History (Colace) fluticasone propionate 50 1 spray intranasal QDAY PRN 11/30/24 01/06/25 History mcg/actuation nasal allergy symptoms spray,suspension (Flonase Allergy Relief) loratadine 10 mg tablet (Claritin) 10 mg PO Q24H 11/3001/06/25 History vitamins-iron fumarate 65 1 tab PO QAM 01/06/25 History mg iron-folic acid 1 mg tablet Processed by: Pharmacy Medications reviewed in ED?: No Medication History completed: Yes [facility] Statement: As the person ultimately responsible for medication therapy, providers are able to order a medication from an existing home medication list in [facility] via the "Reconcile Routine" prior to Confirmation of that medication by underwriting support manager. Such practice is discouraged except when the physician, in their clinical judgment, deems that a medical need exists for a medication without regard to previous use.
[2025-01-06] MEDS ORDERED: LACTATED RINGERS 1,000 ML IV SCH (17:00)
[2025-01-06] MEDS: KETOROLAC 30 MG/ML VIAL IVP SCH (19:27)
[2025-01-06] MEDS: AZITHROMYCIN INJ 500 MG in SODIUM CHLORIDE 0.9% 250 ML IV ONE (19:58)
[2025-01-06] MEDS: CITRIC ACID/SODIUM CITRATE 15 ML UDC PO ONE (20:02)
[2025-01-07] MEDS: CLINDAMYCIN 900 MG/50 ML 900 MG/50 ML BAG IV SCH (00:26)
[2025-01-07] MEDS: ACETAMINOPHEN 500 MG TABLET PO SCH (01:01)
[2025-01-07] MEDS: OXYTOCIN/SODIUM CHLORIDE 500 ML IV PRN (04:13)
[2025-01-07] MEDS: TRANEXAMIC ACID IN NACL 1,000 MG/100 ML BAG IV PRN (05:16)
[2025-01-07 06:07] LABS: HCT - HEMATOCRIT 27.5 % (37.0-47.0); HGB - HEMOGLOBIN 9.3 g/dL (12.0-16.0); MEAN PLATELET VOLUME 9.5 fL (7.9-10.8); PLT - PLATELET COUNT 104.0 10^3/uL (130-450); RED CELL DISTRIBUTION WIDTH 13.5 % (12.0-15.0)
[2025-01-07 06:22] LABS: INR 1.1 (0.8-1.2); PT - PROTHROMBIN TIME 12.2 secs (9.9-12.6)
[2025-01-07 06:28] LABS: ALT ALANINE AMINOTRANSFERASE 12.0 IU/L (10-60); AST ASPARTATE AMINOTRANSFERASE 22.0 IU/L (10-42); BUN - BLOOD UREA NITROGEN 13.0 mg/dL (6-20); CARBON DIOXIDE - CO2 23.0 mmol/L (21-32); CREATININE 0.9 mg/dL (0.6-1.3); GFR - MDRD 70.0 (>89)
--- NOTE | 2025-01-07 06:42 | PROVIDER PROGRESS NOTE ---
Subjective Prog Note Date Prog Note Date: 01/07/25 Prog Note Time: 06:44 Subjective Subjective: At 0356, RN messaged with concern for more than usual bleeding. Fundal massages have been performed postop as scheduled. At 2300 last night, she had a saturated peripad that was about 100 ml (not weighed), and uterus was palpated at U-1 to U-2. At about 0345, she had another 129 ml on the pad (weighed) with uterus firm at U-2 with good urine output and jackson drainage. She requested to restart the PP Pitocin, which was then begun. At about 0425 (after Pitocin had been restarted), she had more bleeding, and uterine massage resulted in passage of 2 large clots and bleeding. Weight was 429 ml. Bleeding improved thereafter. I arrived at the bedside at 0455, and patient had another 40 ml on the pad with uterus palpated at U+1 and slightly deviated to the right. With massage, no additional bleeding noted. I examined the passed clots and did not see any tissue that I felt to be suspicious for membranes or placenta (just endometrial tissue). Notably, her placenta and membranes delivered easily at the time of her , and placenta appeared intact. About 60 min later, she had another small gush about 30 ml. All pads are being weighed to closely monitor. I ordered TXA 1 gm (dose #2, as first was given at cord clamp) and added coags to morning labs, which were just drawn. Patient is resting comfortably and denies lightheadedness or dizziness. VS have been notable for normal pulse (80) and BP 111/69. She has been afebrile since delivery. She was given her PM labetalol 200 mg dose last night, as her BP had been increasing again and was 131/81 just prior to labetalol dose. Discussed concern for additional retained clots that may be impeding contraction of the uterus. Discussed possible need for uterine sweeping and placement of a Lovely device (with IV pain meds and possible return to OR if unable to tolerate at the bedside). Reviewed the pathophysiology and rationale with patient and spouse (via speakerphone, as he's at [facility] in [place] with the baby). All questions addressed. She and spouse requested we wait on any procedures until his mother can arrive from [place] for support. In the interim, bedside US was performed. Though exam limited by the abdominal dressing in place, the endometrial strip appears thin/hyperechoic with no focal areas of thickening or hetergeneity. Surrounding myometrium appears thickened . Color flow doppler did not note any areas of active bleeding. Bladder appeared decompressed. Summary of blood loss from delivery: 655 ml OR 01/06 at 1445 100 ml 2300 129 ml 0400 429 ml 0430 40 ml 0505 31 ml 0620 Total 1384 ml At this time, recommended and administered misoprostol 600 mcg buccal. AM labs just returned and CBC notes decrease in H/H from 13/39.4 on admission to 01/05.5 now. Platelets are 104, down from 205, Fibrinogen normal at 356. Repeat labs ordered for 1200. Will continue to monitor bleeding and fundal height. Current Medications Current Medications Current Medications: Current Medications Generic Name Dose Route Start Last Admin Trade Name Freq PRN Reason Stop Dose Admin Acetaminophen 1,000 mg 01/06/25 11:58 01/06/25 12:02 Acetaminophen 500 Mg Tablet PO 1,000 mg Q6HR PRN Administration Pain or Fever > 38C (100.4F) Acetaminophen 1,000 mg 01/06/25 17:00 01/07/25 01:01 Acetaminophen 500 Mg Tablet PO Not Given Q8H JONH Calcium Carbonate/Glycine 1,000 mg 01/06/25 16:02 Calcium Carbonate Chew 500 Mg Tablet PO Q6HR PRN Heartburn Carboprost Tromethamine 250 mcg 01/05/25 19:20 Carboprost Tromethamine 250 Mcg/Ml Vial IM .ONCE PRN Hemorrhage Carboprost Tromethamine 250 mcg 01/06/25 16:02 Carboprost Tromethamine 250 Mcg/Ml Vial IM .ONCE PRN Hemorrhage Cetirizine HCl 10 mg 01/05/25 19:34 Cetirizine 10 Mg Tablet PO Q24H PRN Allergy Symptoms Diphenhydramine HCl 12.5 - 25 mg 01/06/25 10:13 Diphenhydramine Inj 50 Mg/Ml Vial IVP Q6HR PRN ITCHING Docusate Sodium 200 mg 01/06/25 21:00 Docusate Sodium 100 Mg Capsule PO BID JONH Ephedrine Sulfate 5 mg 01/06/25 10:13 Ephedrine 50 Mg/Ml Vial IVP Q5M PRN For SBP<100;give until SBP>100 Fentanyl 50 mcg 01/05/25 19:20 Fentanyl 100 Mcg/2 Ml Vial IVP Q1H PRN Severe Pain (score 7-10) Fluticasone Propionate 1 sprays 01/05/25 19:28 Fluticasone Nasal [place] WALTER DAILY PRN Allergy Symptoms Hydralazine HCl 10 mg 01/05/25 19:16 Hydralazine Inj 20 Mg/Ml Vial IVP .ONCE PRN SBP> or= 160 OR DBP> or= 110 Hydralazine HCl 5 - 10 mg 01/05/25 19:16 Hydralazine Inj 20 Mg/Ml Vial IVP Q20M PRN SBP> or= 160 OR DBP> or= 110 Protocol Hydralazine HCl 10 mg 01/06/25 16:02 Hydralazine Inj 20 Mg/Ml Vial IVP .ONCE PRN SBP> or= 160 OR DBP> or= 110 Protocol Hydralazine HCl 5 - 20 mg 01/06/25 16:02 Hydralazine Inj 20 Mg/Ml Vial IVP Q20M PRN SBP> or= 160 OR DBP> or= 110 Protocol Lactated Ringer's 500 mls @ 999 mls/hr 01/05/25 19:20 Lr IV PRN PRN Heart Rate Abnormalities Oxytocin/Sodium Chloride 500 mls @ 999 mls/hr 01/05/25 19:20 01/07/25 04:13 Pitocin/Sodium Chloride IV 200 milliunit/min PRN PRN 200 mls/hr POST- HEMORR PREVENTION Administration Protocol 999 MILLIUNIT/MIN Tranexamic Acid 1,000 mg in 100 mls @ 600 mls/hr 01/05/25 19:20 01/07/25 05:16 Tranexamic 1,000 Mg/100ml-Nacl IV 600 mls/hr Q30M PRN Administration EBL >1200mL and within 3hr Ropivacaine 200 mg in 100 mls @ 0 mls/hr 01/06/25 10:13 Naropin 0.2% EP PRN PRN PAIN Protocol Per Protocol Lactated Ringer's 1,000 mls @ 125 mls/hr 01/06/25 14:00 01/07/25 00:25 Lr IV 125 mls/hr .Q8H JONH Administration Oxytocin/Sodium Chloride 500 mls @ 999 mls/hr 01/06/25 16:02 Pitocin/Sodium Chloride IV PRN PRN POST- HEMORR PREVENTION Protocol 999 MILLIUNIT/MIN Tranexamic Acid 1,000 mg in 100 mls @ 500 mls/hr 01/06/25 16:02 Tranexamic 1,000 Mg/100ml-Nacl IV PRN PRN Uterine atony/ Uterine Bleed Clindamycin/Sodium Chloride 900 mg in 50 mls @ 50 mls/hr 01/06/25 22:00 01/07/25 01:34 Cleocin 900 Mg/50 Ml IV Infused Q8HR [facility] Infusion Gentamicin Sulfate 255 mg/ 106.375 mls @ 100 mls/hr 01/07/25 12:00 Sodium Chloride IV Q24H JONH Ibuprofen 600 mg 01/07/25 12:00 Ibuprofen 600 Mg Tablet PO Q6HR JONH Labetalol HCl 20 mg 01/05/25 19:16 Labetalol 20 Mg/4 Ml Syringe IVP .ONCE PRN SBP> or= 160 OR DBP> or= 110 Labetalol HCl 20 - 80 mg 01/05/25 19:16 Labetalol 20 Mg/4 Ml Syringe IVP Q10M PRN SBP> or= 160 OR DBP> or= 110 Protocol Labetalol HCl 20 - 40 mg 01/05/25 19:16 Labetalol 20 Mg/4 Ml Syringe IVP Q10M PRN SBP> or= 160 OR DBP> or= 110 Protocol Labetalol HCl 20 - 40 mg 01/06/25 16:02 Labetalol 20 Mg/4 Ml Syringe IVP Q10M PRN SBP> or= 160 OR DBP> or= 110 Protocol Labetalol HCl 20 mg 01/06/25 16:02 Labetalol 20 Mg/4 Ml Syringe IVP .ONCE PRN SBP> or= 160 OR DBP> or= 110 Protocol Labetalol HCl 20 - 80 mg 01/06/25 16:02 Labetalol 20 Mg/4 Ml Syringe IVP Q10M PRN SBP> or= 160 OR DBP> or= 110 Protocol Lidocaine HCl 20 ml 01/05/25 19:20 Lidocaine 1% 20 Ml Mdv ID 01/08/25 19:21 .ONCE PRN PERINEAL REPAIR Metoclopramide HCl 10 mg 01/06/25 10:13 Metoclopramide 10 Mg/2 Ml Vial IVP Q6HR PRN Nausea / Vomiting Misoprostol 600 mcg 01/05/25 19:20 Misoprostol 200 Mcg Tablet BC .ONCE PRN Hemorrhage Misoprostol 800 mcg 01/05/25 19:20 Misoprostol 200 Mcg Tablet AL .ONCE PRN Hemorrhage Nalbuphine HCl 2.5 - 5 mg 01/06/25 10:13 Nalbuphine 10 Mg/Ml Amp IVP Q4H PRN ITCHING Naloxone HCl 0.1 mg 01/06/25 10:13 Naloxone 0.4 Mg/Ml Vial IVP Q2M PRN RR<8 Naloxone HCl 0.4 mg 01/06/25 16:02 Naloxone 0.4 Mg/Ml Vial IVP .ONCE PRN Opioid overdose Nifedipine 10 - 20 mg 01/05/25 19:16 Nifedipine 10 Mg Capsule PO Q20M PRN SBP> or= 160 OR DBP> or= 110 Protocol Nifedipine 10 - 20 mg 01/06/25 16:02 Nifedipine 10 Mg Capsule PO Q20M PRN SBP> or= 160 OR DBP> or= 110 Protocol Ondansetron HCl 4 mg 01/06/25 08:10 01/06/25 08:50 Ondansetron 4 Mg/2 Ml Vial IVP 4 mg Q4HR PRN Administration Nausea / Vomiting Ondansetron HCl 4 mg 01/06/25 10:13 Ondansetron 4 Mg/2 Ml Vial IVP Q6HR PRN Nausea / Vomiting Oxycodone HCl 5 mg 01/06/25 16:02 Oxycodone 5 Mg Tablet PO Q4HR PRN Severe Pain 6 -10 Oxytocin 10 unit 01/05/25 19:20 Oxytocin 10 Unit/Ml Vial IM .ONCE PRN Step One if no IV access. Multivit/Folic Acid/Iron 1 tab 01/06/25 08:00 Vitamin Tablet PO DAILYWM JONH Simethicone 80 mg 01/06/25 16:02 Simethicone Chew 80 Mg Tablet PO TID PRN Gas Sodium Chloride 10 ml 01/05/25 20:00 01/06/25 19:28 Sodium Chloride Flush 0.9% 10 Ml Syringe IVP 10 ml Q8H JONH Administration Sodium Chloride 10 ml 01/05/25 19:16 Sodium Chloride Flush 0.9% 10 Ml Syringe IVP PRN PRN NEEDED PER PROVIDER ORDERS Objective Vital Signs/Intake & Output Reviewed Vital Signs: Yes Vital Signs: Vital Signs x48h Temp Pulse Resp BP Pulse Ox 01/07/25 06:13 36.8 C 80 17 111/69 97 01/07/25 04:32 36.6 C 69 15 103/62 98 01/07/25 03:00 36.5 C 79 14 97/59 L 98 01/06/25 23:31 36.5 C 66 16 131/81 H 96 Intake & Output: Intake & Output 01/04/25 01/05/25 01/06/25 01/07/25 23:59 23:59 23:59 23:59 Intake Total 200 / 200 4656.375 / 4656.375 50 / 50 Output Total 100 / 100 1775 / 1775 558 / 558 Balance 100 / 100 2881.375 / 2881.375 -508 / -508 Weight (kg) 56.6 kg 56.699 kg Objective General Appearance: positive No acute distress and Alert Respiratory: positive No respiratory distress Cardiovascular: positive Regular rate & rhythm Abdomen: positive Tenderness (Appropriate postop) and Other (Fundus firm, mildly tender at Umb) Skin: positive Pallor (Mild; lips light pink) and Other (Abdominal incision: dressing in place and not saturated) Extremities: positive Full ROM, Nml appearance and No pedal edema Neurologic/Psychiatric: positive Oriented x3, Motor nml, Sensation nml and Mood/affect nml Lab Results 01/07/25 06:00 01/06/25 08:48 Other Labs: Lab Results x24hrs 01/07/25 01/06/25 Range/Units 06:00 08:48 WBC 20.6 H 13.4 H (4.8-10.8) x10^3/uL RBC 2.97 L 4.25 (4.20-5.40) 10^6/uL Hgb 9.3 L 13.0 (12.0-16.0) g/dL Hct 27.5 L 39.4 (37.0-47.0) % MCV 92.6 92.7 (81.0-99.0) fL MCH 31.3 H 30.6 (27.0-31.0) pg MCHC 33.8 33.0 (32.0-36.0) g/dL RDW 13.5 13.2 (12.0-15.0) % Plt Count 104 L 205 (130-450) 10^3/uL MPV 9.5 10.4 (7.9-10.8) fL Neut # (Auto) 11.6 H (1.5-6.6) 10^3/uL Lymph # (Auto) 1.0 L (1.5-3.5) 10^3/uL [place] # (Auto) 0.5 (0.0-1.0) 10^3/uL Eos # (Auto) 0.2 (0.0-0.7) 10^3/uL Baso # (Auto) 0.0 (0.0-0.1) 10^3/uL Absolute Nucleated RBC 0.00 x10^3/uL Nucleated RBC % 0.0 /100WBC Sodium 131 L (135-145) mmol/L Potassium 3.8 (3.5-4.5) mmol/L Chloride 101 (101-111) mmol/L Carbon Dioxide 22 (21-32) mmol/L Anion Gap 8.0 (6-13) BUN 12 (6-20) mg/dL Creatinine 0.8 (0.6-1.3) mg/dL Estimated GFR (MDRD) 80 L (>89) Glucose 121 H (74-104) mg/dL Calcium 8.3 L (8.5-10.3) mg/dL Total Bilirubin 0.4 (0.2-1.0) mg/dL AST 27 (10-42) IU/L ALT 16 (10-60) IU/L Alkaline Phosphatase 170 H (42-121) IU/L Total Protein 6.5 (6.4-8.9) g/dL Albumin 3.5 (3.2-5.5) g/dL Globulin 3.0 (2.1-4.2) g/dL Albumin/Globulin Ratio 1.2 (1.0-2.2) ABX Reporting Has patient been on IV antibiotics over the past 48 hours?: Yes Assessment/Plan Problem List (1) hemorrhage, delivered, current hospitalization: Impression: POD #1 s/p 1' LTCS with increased bleeding since delivery, as discussed above. QBL up to 1384 ml at this time. Suspect she may have had retained clot that was impeding effective uterine contractions. Clots appear to have passed after restart of Pitocin around 0415. H/H declined consistent with blood loss, and patient with no si/sx of anemia. Bedside US not suggestive of additional retained clots/tissue. - S/p restart of Pitocin, TXA dose #2, and buccal miso 600 mcg (just placed). - Cont pad weights and close monitoring. - Discussed possible need for uterine sweep and Lovely. Will hold for now. - Repeat CBC/coags at 1200. - Cont close monitoring of VS and UOP. Maintain jackson until bleeding stabilized (at least 1200). - No indication for blood transfusion at this time. Patient may benefit from iron infusion but would defer to outpatient, well after resolution of intra- amniotic infection. - Cont with other postop/ care, including pain mgmt. OK to cont Toradol at this time. Pt previously declined Tylenol, and I discussed benefits of scheduled Tylenol and Motrin for baseline pain control. She verbalized understanding but didn't state if she would accept medication when offered. (2) Chorioamnionitis, delivered, current hospitalization: Impression: Afebrile since delivery yesterday. - Cont Gent/clinda until 48 hrs afebrile (3) Pre-eclampsia in third trimester: Impression: BP's normal to mildly elevated. AM labs note no trends concerning for worsening preE (decrease in platelets more likely associated with blood loss). - Cont to monitor BP's and hold labetalol PO. (4) Elderly primigravida in third trimester: (5) 38 weeks gestation of : (6) Group B streptococcal carriage complicating :
[2025-01-07] MEDS: DOCUSATE SODIUM 100 MG CAPSULE PO SCH (08:07)
[2025-01-07] MEDS: CLINDAMYCIN 900 MG/50 ML 900 MG/50 ML BAG IV ONE (09:18)
[2025-01-07] MEDS: SODIUM CHLORIDE 0.9% IV SCH (12:39)
[2025-01-07] MEDS: GENTAMICIN IV SCH (12:39)
[2025-01-07] MEDS: SIMETHICONE CHEW 80 MG TABLET PO PRN (12:48)
[2025-01-07 13:39] LABS: HCT - HEMATOCRIT 26.8 % (37.0-47.0); HGB - HEMOGLOBIN 8.9 g/dL (12.0-16.0); MEAN PLATELET VOLUME 9.3 fL (7.9-10.8); PLT - PLATELET COUNT 115 10^3/uL (130-450); RED CELL DISTRIBUTION WIDTH 13.8 % (12.0-15.0)
[2025-01-07 13:44] LABS: ABNORMAL LYMPHS % (MANUAL) 0 %; BASOPHILS # (MANUAL) 0.0 10^3/uL (0-0.1); EOSINOPHILS # (MANUAL) 0.0 10^3/uL (0-0.7)
[2025-01-07 13:47] LABS: INR 1.0 (0.8-1.2); PT - PROTHROMBIN TIME 11.8 secs (9.9-12.6)
[2025-01-07 14:08] LABS: BAND NEUTROPHILS % (MANUAL) 16 %; LYMPHOCYTES # (MANUAL) 2.5 10^3/uL (1.5-3.5); LYMPHOCYTES % (MANUAL) 9 %; METAMYELOCYTES % (MANUAL) 1 %; MONOCYTES # (MANUAL) 1.3 10^3/uL (0.0-1.0); NEUTROPHILS # (MANUAL) 17.1 10^3/uL (1.5-6.6); RBC MORPHOLOGY (MULTIPLE) 1+ ANISOCYTOSIS (NORMAL); REACTIVE LYMPHS % (MANUAL) 3 %
[2025-01-07] MEDS: IBUPROFEN 600 MG TABLET PO SCH (15:29)
--- NOTE | 2025-01-07 22:08 | PROVIDER PROGRESS NOTE ---
Progress Note Progress Note Progress Note: patient seen and examined around noon. Her abdomen was mildly tender, but not bad. She was not dizzy or very uncomfortable. minimal bleeding. Since then she has gotten out of bed, been voiding, had a bm. is up and around without dizziness. CBC done and WBC went from 20 to 21,000. she is afebrile. pain is well controlled. Not bleeding much. RN just requested 2.5 mg oxy instead of 5 as 5 seems too much for her. given WBC increased will continue abx until am and recheck. if decreasing can dc BAby was doing well at [place].
[2025-01-07] MEDS: oxyCODONE 5 MG TABLET PO PRN (22:33)
[2025-01-08 03:08] LABS: RPR Non Reactive (Non Reactive)
[2025-01-08 05:54] LABS: HCT - HEMATOCRIT 24.8 % (37.0-47.0); HGB - HEMOGLOBIN 8.4 g/dL (12.0-16.0); MEAN PLATELET VOLUME 9.7 fL (7.9-10.8); PLT - PLATELET COUNT 114.0 10^3/uL (130-450); RED CELL DISTRIBUTION WIDTH 14.1 % (12.0-15.0)
--- NOTE | 2025-01-08 08:07 | PROVIDER PROGRESS NOTE ---
Subjective Subjective Subjective: patient woke up with chest pain, says she is dizzy when standing up for a few minutes this am. I did not see patient yet, but spoke to RN and talked to her on phone. Current Medications Current Medications Current Medications: Current Medications Generic Name Dose Route Start Last Admin Trade Name Richie PRN Reason Stop Dose Admin Acetaminophen 1,000 mg 01/06/25 11:58 01/06/25 12:02 Acetaminophen 500 Mg Tablet PO 1,000 mg Q6HR PRN Administration Pain or Fever > 38C (100.4F) Acetaminophen 1,000 mg 01/06/25 17:00 01/07/25 23:28 Acetaminophen 500 Mg Tablet PO 1,000 mg Q8H JONH Administration Calcium Carbonate/Glycine 1,000 mg 01/06/25 16:02 Calcium Carbonate Chew 500 Mg Tablet PO Q6HR PRN Heartburn Carboprost Tromethamine 250 mcg 01/05/25 19:20 Carboprost Tromethamine 250 Mcg/Ml Vial IM .ONCE PRN Hemorrhage Carboprost Tromethamine 250 mcg 01/06/25 16:02 Carboprost Tromethamine 250 Mcg/Ml Vial IM .ONCE PRN Hemorrhage Cetirizine HCl 10 mg 01/05/25 19:34 Cetirizine 10 Mg Tablet PO Q24H PRN Allergy Symptoms Diphenhydramine HCl 12.5 - 25 mg 01/06/25 10:13 Diphenhydramine Inj 50 Mg/Ml Vial IVP Q6HR PRN ITCHING Docusate Sodium 200 mg 01/06/25 21:00 01/08/25 01:35 Docusate Sodium 100 Mg Capsule PO Not Given BID JONH Ephedrine Sulfate 5 mg 01/06/25 10:13 Ephedrine 50 Mg/Ml Vial IVP Q5M PRN For SBP<100;give until SBP>100 Fentanyl 50 mcg 01/05/25 19:20 Fentanyl 100 Mcg/2 Ml Vial IVP Q1H PRN Severe Pain (score 7-10) Fluticasone Propionate 1 sprays 01/05/25 19:28 Fluticasone Nasal [place] WALTER DAILY PRN Allergy Symptoms Hydralazine HCl 10 mg 01/05/25 19:16 Hydralazine Inj 20 Mg/Ml Vial IVP .ONCE PRN SBP> or= 160 OR DBP> or= 110 Hydralazine HCl 5 - 10 mg 01/05/25 19:16 Hydralazine Inj 20 Mg/Ml Vial IVP Q20M PRN SBP> or= 160 OR DBP> or= 110 Protocol Hydralazine HCl 10 mg 01/06/25 16:02 Hydralazine Inj 20 Mg/Ml Vial IVP .ONCE PRN SBP> or= 160 OR DBP> or= 110 Protocol Hydralazine HCl 5 - 20 mg 01/06/25 16:02 Hydralazine Inj 20 Mg/Ml Vial IVP Q20M PRN SBP> or= 160 OR DBP> or= 110 Protocol Lactated Ringer's 500 mls @ 999 mls/hr 01/05/25 19:20 Lr IV PRN PRN Heart Rate Abnormalities Oxytocin/Sodium Chloride 500 mls @ 999 mls/hr 01/05/25 19:20 01/07/25 04:13 Pitocin/Sodium Chloride IV 200 milliunit/min PRN PRN 200 mls/hr POST- HEMORR PREVENTION Administration Protocol 999 MILLIUNIT/MIN Tranexamic Acid 1,000 mg in 100 mls @ 600 mls/hr 01/05/25 19:20 01/07/25 05:16 Tranexamic 1,000 Mg/100ml-Nacl IV 600 mls/hr Q30M PRN Administration EBL >1200mL and within 3hr Ropivacaine 200 mg in 100 mls @ 0 mls/hr 01/06/25 10:13 Naropin 0.2% EP PRN PRN PAIN Protocol Per Protocol Lactated Ringer's 1,000 mls @ 125 mls/hr 01/06/25 14:00 01/07/25 00:25 Lr IV 125 mls/hr .Q8H JONH Administration Oxytocin/Sodium Chloride 500 mls @ 999 mls/hr 01/06/25 16:02 Pitocin/Sodium Chloride IV PRN PRN POST- HEMORR PREVENTION Protocol 999 MILLIUNIT/MIN Tranexamic Acid 1,000 mg in 100 mls @ 500 mls/hr 01/06/25 16:02 Tranexamic 1,000 Mg/100ml-Nacl IV PRN PRN Uterine atony/ Uterine Bleed Clindamycin/Sodium Chloride 900 mg in 50 mls @ 50 mls/hr 01/06/25 22:00 01/08/25 01:32 Cleocin 900 Mg/50 Ml IV 50 mls/hr Q8HR JONH Administration Gentamicin Sulfate 255 mg/ 106.375 mls @ 100 mls/hr 01/07/25 12:00 01/07/25 12:39 Sodium Chloride IV 100 mls/hr Q24H JONH Administration Ibuprofen 600 mg 01/07/25 12:00 01/08/25 05:38 Ibuprofen 600 Mg Tablet PO 600 mg Q6HR JONH Administration Labetalol HCl 20 mg 01/05/25 19:16 Labetalol 20 Mg/4 Ml Syringe IVP .ONCE PRN SBP> or= 160 OR DBP> or= 110 Labetalol HCl 20 - 80 mg 01/05/25 19:16 Labetalol 20 Mg/4 Ml Syringe IVP Q10M PRN SBP> or= 160 OR DBP> or= 110 Protocol Labetalol HCl 20 - 40 mg 01/05/25 19:16 Labetalol 20 Mg/4 Ml Syringe IVP Q10M PRN SBP> or= 160 OR DBP> or= 110 Protocol Labetalol HCl 20 - 40 mg 01/06/25 16:02 Labetalol 20 Mg/4 Ml Syringe IVP Q10M PRN SBP> or= 160 OR DBP> or= 110 Protocol Labetalol HCl 20 mg 01/06/25 16:02 Labetalol 20 Mg/4 Ml Syringe IVP .ONCE PRN SBP> or= 160 OR DBP> or= 110 Protocol Labetalol HCl 20 - 80 mg 01/06/25 16:02 Labetalol 20 Mg/4 Ml Syringe IVP Q10M PRN SBP> or= 160 OR DBP> or= 110 Protocol Lidocaine HCl 20 ml 01/05/25 19:20 Lidocaine 1% 20 Ml Mdv ID 01/08/25 19:21 .ONCE PRN PERINEAL REPAIR Metoclopramide HCl 10 mg 01/06/25 10:13 Metoclopramide 10 Mg/2 Ml Vial IVP Q6HR PRN Nausea / Vomiting Misoprostol 800 mcg 01/05/25 19:20 Misoprostol 200 Mcg Tablet AL .ONCE PRN Hemorrhage Nalbuphine HCl 2.5 - 5 mg 01/06/25 10:13 Nalbuphine 10 Mg/Ml Amp IVP Q4H PRN ITCHING Naloxone HCl 0.1 mg 01/06/25 10:13 Naloxone 0.4 Mg/Ml Vial IVP Q2M PRN RR<8 Naloxone HCl 0.4 mg 01/06/25 16:02 Naloxone 0.4 Mg/Ml Vial IVP .ONCE PRN Opioid overdose Nifedipine 10 - 20 mg 01/05/25 19:16 Nifedipine 10 Mg Capsule PO Q20M PRN SBP> or= 160 OR DBP> or= 110 Protocol Nifedipine 10 - 20 mg 01/06/25 16:02 Nifedipine 10 Mg Capsule PO Q20M PRN SBP> or= 160 OR DBP> or= 110 Protocol Ondansetron HCl 4 mg 01/06/25 08:10 01/06/25 08:50 Ondansetron 4 Mg/2 Ml Vial IVP 4 mg Q4HR PRN Administration Nausea / Vomiting Ondansetron HCl 4 mg 01/06/25 10:13 Ondansetron 4 Mg/2 Ml Vial IVP Q6HR PRN Nausea / Vomiting Oxycodone HCl 2.5 mg 01/07/25 22:03 01/07/25 22:33 Oxycodone 5 Mg Tablet PO 2.5 mg Q4HR PRN Administration Pain or Fever > 38C (100.4F) Oxytocin 10 unit 01/05/25 19:20 Oxytocin 10 Unit/Ml Vial IM .ONCE PRN Step One if no IV access. Multivit/Folic Acid/Iron 1 tab 01/06/25 08:00 Vitamin Tablet PO DAILYWM JONH Simethicone 80 mg 01/06/25 16:02 01/07/25 20:15 Simethicone Chew 80 Mg Tablet PO 80 mg TID PRN Administration Gas Sodium Chloride 10 ml 01/05/25 20:00 01/06/25 19:28 Sodium Chloride Flush 0.9% 10 Ml Syringe IVP 10 ml Q8H JONH Administration Sodium Chloride 10 ml 01/05/25 19:16 Sodium Chloride Flush 0.9% 10 Ml Syringe IVP PRN PRN NEEDED PER PROVIDER ORDERS Objective Vital Signs/Intake & Output Vital Signs: Vital Signs x48h Temp Pulse Resp BP Pulse Ox 01/08/25 05:30 36.4 C L 74 15 119/81 95 01/08/25 01:00 36.4 C L 70 18 122/82 98 Intake & Output: Intake & Output 01/05/25 01/06/25 01/07/25 01/08/25 23:59 23:59 23:59 23:59 Intake Total 200 / 200 4656.375 / 4656.375 1400 / 1400 Output Total 100 / 100 2675 / 2675 2229 / 2229 1100 / 1100 Balance 100 / 100 1981.375 / 1981.375 -829 / -829 -1100 / -1100 Weight (kg) 124 lb 12.506 oz 125 lb Lab Results 01/08/25 05:45 01/07/25 06:00 Other Labs: Lab Results x24hrs 01/08/25 01/07/25 01/05/25 Range/Units 05:45 13:30 19:56 WBC 21.2 H 21.1 H (4.8-10.8) x10^3/uL RBC 2.66 L 2.87 L (4.20-5.40) 10^6/uL Hgb 8.4 L 8.9 L (12.0-16.0) g/dL Hct 24.8 L 26.8 L (37.0-47.0) % MCV 93.2 93.4 (81.0-99.0) fL MCH 31.6 H 31.0 (27.0-31.0) pg MCHC 33.9 33.2 (32.0-36.0) g/dL RDW 14.1 13.8 (12.0-15.0) % Plt Count 114 L 115 L (130-450) 10^3/uL MPV 9.7 9.3 (7.9-10.8) fL Neut # (Auto) Not Reportable Lymph # (Auto) Not Reportable [place] # (Auto) Not Reportable Eos # (Auto) Not Reportable Baso # (Auto) Not Reportable Absolute Nucleated RBC Not Reportable Total Counted 100 Band Neuts % (Manual) 16 H (0 - 10) % Reactive Lymphs % (Man) 3 % Abnorm Lymph % (Manual) 0 % Metamyelocytes % 1 H ( - 0) % Nucleated RBC % Not Reportable Neutrophils # (Manual) 17.1 H (1.5-6.6) 10^3/uL Lymphocytes # (Manual) 2.5 (1.5-3.5) 10^3/uL Monocytes # (Manual) 1.3 H (0.0-1.0) 10^3/uL Eosinophils # (Manual) 0.0 (0-0.7) 10^3/uL Basophils # (Manual) 0.0 (0-0.1) 10^3/uL Differential Comment MANUAL DIFFERENTIAL RBC Morph Micro Appear 1+ ANISOCYTOSIS (NORMAL) PT 11.8 (9.9-12.6) secs INR 1.0 (0.8-1.2) APTT 26.8 (24.9-33.3) secs Fibrinogen 436 (220-496) mg/dL RPR Non Reactive (Non Reactive) Assessment/Plan Problem List (1) hemorrhage, delivered, current hospitalization: Impression: significant anemia. 24% hct. will transfuse 1 unit as patient is very small. a second if needed. explained to patient by phone. now with chest pain and lower O2 sat. ECG wtih abnromal T waves. Will get CT angio to r/o PE. explained to patient. (2) Chorioamnionitis, delivered, current hospitalization: Impression: WBC has not yet decreased. on Gent and Clinda since delivery. (3) Pre-eclampsia in third trimester: Impression: bps stable over night. (4) 38 weeks gestation of : (5) Group B streptococcal carriage complicating : (6) Delivery by section of full-term infant:
[2025-01-08] MEDS: LACTATED RINGERS 500 ML IV ONE (09:21)
--- NOTE | 2025-01-08 09:29 | CT Report ---
PROCEDURE: CT Angio Chest INDICATIONS: r/o PE CONTRAST: OMNI 300 80ML TECHNIQUE: After the administration of intravenous contrast, 2 mm axial images were acquired from the pulmonary apices to the posterior costophrenic angles during the arterial phase. In addition, 1 mm lung kernel and 5 mm soft tissue kernel reconstructions were performed. 3-dimensional coronal oblique maximum intensity projection (MIP) reformats, 8 mm axial MIP, and 5 mm coronal and sagittal MPR reformats were then performed through the thorax. For radiation dose reduction, the following was used: automated exposure control, adjustment of mA and/or kV according to patient size. COMPARISON: None. FINDINGS: Image quality: Excellent. Large vessels: No filling defects within the opacified pulmonary arteries, accounting for motion and contrast timing. No evidence of acute aortic syndrome or aortic aneurysm. Lungs and pleura: No consolidation. Small bilateral pleural effusions with bibasilar atelectasis.. No pneumothorax. No suspicious pulmonary nodules which require follow up. Mediastinum: Heart size is normal. No pericardial effusion. No large vessel abnormality. No mediastinal adenopathy by size criteria. Chest wall and lower neck: Thyroid is unremarkable. No axillary or supraclavicular adenopathy by size. Bones: No aggressive osseous abnormality. Upper Abdomen: Small focus of gas is seen under the right hemidiaphragm that is likely related to recent abdominal surgery. IMPRESSION: 1. No acute pulm embolus. 2. Small bilateral pleural effusions with bibasilar atelectasis. Reviewed by: Kentrell Blanco MD on 01/08/2025 9:26 AM PDT Approved by: Kentrell Blanco MD on 01/08/2025 9:26 AM PDT Station ID: [id number]
[2025-01-08 10:05] LABS: ALT ALANINE AMINOTRANSFERASE 12.0 IU/L (10-60); AST ASPARTATE AMINOTRANSFERASE 20.0 IU/L (10-42); BUN - BLOOD UREA NITROGEN 12.0 mg/dL (6-20); CARBON DIOXIDE - CO2 25.0 mmol/L (21-32); CREATININE 0.9 mg/dL (0.6-1.3); GFR - MDRD 70.0 (>89)
--- NOTE | 2025-01-08 10:06 | PROVIDER PROGRESS NOTE ---
Subjective Subjective Subjective: Earlier this morning, Kenzie reported chest pain and was also having low 02 saturations. Had an EKG with T wave abnormalties and CT was done to evaluate for PE which was negative, but showing small bilateral pleural effusions with bibasilar atelectasis. At bedside, Kenzie reports feeling chest pressure this morning, positional, more so when lying back but gets better when sitting/standing up. Reports that now the sensation has resolved. She reports feeling briefly lightheaded when she first stood this morning. Has been ambulating to the bathroom. Passing flatus and had a BM yesterday. Reports abdomen feels sore, but overall, but overall does feel that the pain medications are working. She reports bleeding is minimal. Reports baby is still in the NICU in [place], she has not heard an update yesterday. Doesn't want to get up and take a shower yet. Current Medications Current Medications Current Medications: Current Medications Generic Name Dose Route Start Last Admin Trade Name Freq PRN Reason Stop Dose Admin Acetaminophen 1,000 mg 01/06/25 11:58 01/06/25 12:02 Acetaminophen 500 Mg Tablet PO 1,000 mg Q6HR PRN Administration Pain or Fever > 38C (100.4F) Acetaminophen 1,000 mg 01/06/25 17:00 01/08/25 08:36 Acetaminophen 500 Mg Tablet PO 1,000 mg Q8H JONH Administration Calcium Carbonate/Glycine 1,000 mg 01/06/25 16:02 Calcium Carbonate Chew 500 Mg Tablet PO Q6HR PRN Heartburn Carboprost Tromethamine 250 mcg 01/05/25 19:20 Carboprost Tromethamine 250 Mcg/Ml Vial IM .ONCE PRN Hemorrhage Carboprost Tromethamine 250 mcg 01/06/25 16:02 Carboprost Tromethamine 250 Mcg/Ml Vial IM .ONCE PRN Hemorrhage Cetirizine HCl 10 mg 01/05/25 19:34 Cetirizine 10 Mg Tablet PO Q24H PRN Allergy Symptoms Diphenhydramine HCl 12.5 - 25 mg 01/06/25 10:13 Diphenhydramine Inj 50 Mg/Ml Vial IVP Q6HR PRN ITCHING Docusate Sodium 200 mg 01/06/25 21:00 01/08/25 08:36 Docusate Sodium 100 Mg Capsule PO 200 mg BID JONH Administration Ephedrine Sulfate 5 mg 01/06/25 10:13 Ephedrine 50 Mg/Ml Vial IVP Q5M PRN For SBP<100;give until SBP>100 Fentanyl 50 mcg 01/05/25 19:20 Fentanyl 100 Mcg/2 Ml Vial IVP Q1H PRN Severe Pain (score 7-10) Fluticasone Propionate 1 sprays 01/05/25 19:28 Fluticasone Nasal [place] WALTER DAILY PRN Allergy Symptoms Hydralazine HCl 10 mg 01/05/25 19:16 Hydralazine Inj 20 Mg/Ml Vial IVP .ONCE PRN SBP> or= 160 OR DBP> or= 110 Hydralazine HCl 5 - 10 mg 01/05/25 19:16 Hydralazine Inj 20 Mg/Ml Vial IVP Q20M PRN SBP> or= 160 OR DBP> or= 110 Protocol Hydralazine HCl 10 mg 01/06/25 16:02 Hydralazine Inj 20 Mg/Ml Vial IVP .ONCE PRN SBP> or= 160 OR DBP> or= 110 Protocol Hydralazine HCl 5 - 20 mg 01/06/25 16:02 Hydralazine Inj 20 Mg/Ml Vial IVP Q20M PRN SBP> or= 160 OR DBP> or= 110 Protocol Lactated Ringer's 500 mls @ 999 mls/hr 01/05/25 19:20 Lr IV PRN PRN Heart Rate Abnormalities Oxytocin/Sodium Chloride 500 mls @ 999 mls/hr 01/05/25 19:20 01/07/25 04:13 Pitocin/Sodium Chloride IV 200 milliunit/min PRN PRN 200 mls/hr POST- HEMORR PREVENTION Administration Protocol 999 MILLIUNIT/MIN Tranexamic Acid 1,000 mg in 100 mls @ 600 mls/hr 01/05/25 19:20 01/07/25 05:16 Tranexamic 1,000 Mg/100ml-Nacl IV 600 mls/hr Q30M PRN Administration EBL >1200mL and within 3hr Ropivacaine 200 mg in 100 mls @ 0 mls/hr 01/06/25 10:13 Naropin 0.2% EP PRN PRN PAIN Protocol Per Protocol Lactated Ringer's 1,000 mls @ 125 mls/hr 01/06/25 14:00 01/07/25 00:25 Lr IV 125 mls/hr .Q8H JONH Administration Oxytocin/Sodium Chloride 500 mls @ 999 mls/hr 01/06/25 16:02 Pitocin/Sodium Chloride IV PRN PRN POST- HEMORR PREVENTION Protocol 999 MILLIUNIT/MIN Tranexamic Acid 1,000 mg in 100 mls @ 500 mls/hr 01/06/25 16:02 Tranexamic 1,000 Mg/100ml-Nacl IV PRN PRN Uterine atony/ Uterine Bleed Clindamycin/Sodium Chloride 900 mg in 50 mls @ 50 mls/hr 01/06/25 22:00 01/08/25 09:21 Cleocin 900 Mg/50 Ml IV 50 mls/hr Q8HR JONH Administration Gentamicin Sulfate 255 mg/ 106.375 mls @ 100 mls/hr 01/07/25 12:00 01/07/25 12:39 Sodium Chloride IV 100 mls/hr Q24H JONH Administration Ibuprofen 600 mg 01/07/25 12:00 01/08/25 05:38 Ibuprofen 600 Mg Tablet PO 600 mg Q6HR JONH Administration Labetalol HCl 20 mg 01/05/25 19:16 Labetalol 20 Mg/4 Ml Syringe IVP .ONCE PRN SBP> or= 160 OR DBP> or= 110 Labetalol HCl 20 - 80 mg 01/05/25 19:16 Labetalol 20 Mg/4 Ml Syringe IVP Q10M PRN SBP> or= 160 OR DBP> or= 110 Protocol Labetalol HCl 20 - 40 mg 01/05/25 19:16 Labetalol 20 Mg/4 Ml Syringe IVP Q10M PRN SBP> or= 160 OR DBP> or= 110 Protocol Labetalol HCl 20 - 40 mg 01/06/25 16:02 Labetalol 20 Mg/4 Ml Syringe IVP Q10M PRN SBP> or= 160 OR DBP> or= 110 Protocol Labetalol HCl 20 mg 01/06/25 16:02 Labetalol 20 Mg/4 Ml Syringe IVP .ONCE PRN SBP> or= 160 OR DBP> or= 110 Protocol Labetalol HCl 20 - 80 mg 01/06/25 16:02 Labetalol 20 Mg/4 Ml Syringe IVP Q10M PRN SBP> or= 160 OR DBP> or= 110 Protocol Lidocaine HCl 20 ml 01/05/25 19:20 Lidocaine 1% 20 Ml Mdv ID 01/08/25 19:21 .ONCE PRN PERINEAL REPAIR Metoclopramide HCl 10 mg 01/06/25 10:13 Metoclopramide 10 Mg/2 Ml Vial IVP Q6HR PRN Nausea / Vomiting Misoprostol 800 mcg 01/05/25 19:20 Misoprostol 200 Mcg Tablet RI .ONCE PRN Hemorrhage Nalbuphine HCl 2.5 - 5 mg 01/06/25 10:13 Nalbuphine 10 Mg/Ml Amp IVP Q4H PRN ITCHING Naloxone HCl 0.1 mg 01/06/25 10:13 Naloxone 0.4 Mg/Ml Vial IVP Q2M PRN RR<8 Naloxone HCl 0.4 mg 01/06/25 16:02 Naloxone 0.4 Mg/Ml Vial IVP .ONCE PRN Opioid overdose Nifedipine 10 - 20 mg 01/05/25 19:16 Nifedipine 10 Mg Capsule PO Q20M PRN SBP> or= 160 OR DBP> or= 110 Protocol Nifedipine 10 - 20 mg 01/06/25 16:02 Nifedipine 10 Mg Capsule PO Q20M PRN SBP> or= 160 OR DBP> or= 110 Protocol Ondansetron HCl 4 mg 01/06/25 08:10 01/06/25 08:50 Ondansetron 4 Mg/2 Ml Vial IVP 4 mg Q4HR PRN Administration Nausea / Vomiting Ondansetron HCl 4 mg 01/06/25 10:13 Ondansetron 4 Mg/2 Ml Vial IVP Q6HR PRN Nausea / Vomiting Oxycodone HCl 2.5 mg 01/07/25 22:03 01/07/25 22:33 Oxycodone 5 Mg Tablet PO 2.5 mg Q4HR PRN Administration Pain or Fever > 38C (100.4F) Oxytocin 10 unit 01/05/25 19:20 Oxytocin 10 Unit/Ml Vial IM .ONCE PRN Step One if no IV access. Multivit/Folic Acid/Iron 1 tab 01/06/25 08:00 Vitamin Tablet PO DAILYWM JONH Simethicone 80 mg 01/06/25 16:02 01/07/25 20:15 Simethicone Chew 80 Mg Tablet PO 80 mg TID PRN Administration Gas Sodium Chloride 10 ml 01/05/25 20:00 01/08/25 08:15 Sodium Chloride Flush 0.9% 10 Ml Syringe IVP 10 ml Q8H JONH Administration Sodium Chloride 10 ml 01/05/25 19:16 Sodium Chloride Flush 0.9% 10 Ml Syringe IVP PRN PRN NEEDED PER PROVIDER ORDERS Objective Vital Signs/Intake & Output Reviewed Vital Signs: Yes Vital Signs: Vital Signs x48h Temp Pulse Resp BP BP Pulse Ox 01/08/25 08:15 97.9 F 84 16 135/90 H 94 01/08/25 07:12 79 18 145/93 H 88 L 01/08/25 05:30 97.5 F L 74 15 119/81 95 Intake & Output: Intake & Output 01/05/25 01/06/25 01/07/25 01/08/25 23:59 23:59 23:59 23:59 Intake Total 200 / 200 4656.375 / 4656.375 1400 / 1400 50 / 50 Output Total 100 / 100 2675 / 2675 2229 / 2229 1100 / 1100 Balance 100 / 100 1981.375 / 1981.375 -829 / -829 -1050 / -1050 Weight (kg) 124 lb 12.506 oz 125 lb Objective Comments/Other: Gen: NAD, sitting up in bed CV: RRR, no significant murmur appreciated Resp: CTAB no wheezes or cracles appreciated Abd: fudnus firm at the umbilicus, appropriately TTP without rebound/guarding. Bandage was removed, incision is intact without erythema or drainage. Ext: no evidence of DVT, no LE edema Lab Results 01/08/25 05:45 01/08/25 05:45 Other Labs: Lab Results x24hrs 01/08/25 01/07/25 01/05/25 Range/Units 05:45 13:30 21:00 WBC 21.2 H 21.1 H (4.8-10.8) x10^3/uL RBC 2.66 L 2.87 L (4.20-5.40) 10^6/uL Hgb 8.4 L 8.9 L (12.0-16.0) g/dL Hct 24.8 L 26.8 L (37.0-47.0) % MCV 93.2 93.4 (81.0-99.0) fL MCH 31.6 H 31.0 (27.0-31.0) pg MCHC 33.9 33.2 (32.0-36.0) g/dL RDW 14.1 13.8 (12.0-15.0) % Plt Count 114 L 115 L (130-450) 10^3/uL MPV 9.7 9.3 (7.9-10.8) fL Neut # (Auto) Not Reportable Lymph # (Auto) Not Reportable [place] # (Auto) Not Reportable Eos # (Auto) Not Reportable Baso # (Auto) Not Reportable Absolute Nucleated RBC Not Reportable Total Counted 100 Band Neuts % (Manual) 16 H (0 - 10) % Reactive Lymphs % (Man) 3 % Abnorm Lymph % (Manual) 0 % Metamyelocytes % 1 H ( - 0) % Nucleated RBC % Not Reportable Neutrophils # (Manual) 17.1 H (1.5-6.6) 10^3/uL Lymphocytes # (Manual) 2.5 (1.5-3.5) 10^3/uL Monocytes # (Manual) 1.3 H (0.0-1.0) 10^3/uL Eosinophils # (Manual) 0.0 (0-0.7) 10^3/uL Basophils # (Manual) 0.0 (0-0.1) 10^3/uL Differential Comment MANUAL DIFFERENTIAL RBC Morph Micro Appear 1+ ANISOCYTOSIS (NORMAL) PT 11.8 (9.9-12.6) secs INR 1.0 (0.8-1.2) APTT 26.8 (24.9-33.3) secs Fibrinogen 436 (220-496) mg/dL Sodium 138 (135-145) mmol/L Potassium 4.0 (3.5-4.5) mmol/L Chloride 109 (101-111) mmol/L Carbon Dioxide 25 (21-32) mmol/L Anion Gap 4.0 L (6-13) BUN 12 (6-20) mg/dL Creatinine 0.9 (0.6-1.3) mg/dL Estimated GFR (MDRD) 70 L (>89) Glucose 98 (74-104) mg/dL Calcium 7.3 L (8.5-10.3) mg/dL Total Bilirubin 0.3 (0.2-1.0) mg/dL AST 20 (10-42) IU/L ALT 12 (10-60) IU/L Alkaline Phosphatase 97 (42-121) IU/L Total Protein 4.9 L (6.4-8.9) g/dL Albumin 2.5 L (3.2-5.5) g/dL Globulin 2.4 (2.1-4.2) g/dL Albumin/Globulin Ratio 1.0 (1.0-2.2) RPR (Non Reactive) Blood Type B POSITIVE Antibody Screen NEGATIVE Crossmatch IS Only See Detail 01/05/25 Range/Units 19:56 WBC (4.8-10.8) x10^3/uL RBC (4.20-5.40) 10^6/uL Hgb (12.0-16.0) g/dL Hct (37.0-47.0) % MCV (81.0-99.0) fL MCH (27.0-31.0) pg MCHC (32.0-36.0) g/dL RDW (12.0-15.0) % Plt Count (130-450) 10^3/uL MPV (7.9-10.8) fL Neut # (Auto) Lymph # (Auto) [place] # (Auto) Eos # (Auto) Baso # (Auto) Absolute Nucleated RBC Total Counted Band Neuts % (Manual) (0 - 10) % Reactive Lymphs % (Man) % Abnorm Lymph % (Manual) % Metamyelocytes % ( - 0) % Nucleated RBC % Neutrophils # (Manual) (1.5-6.6) 10^3/uL Lymphocytes # (Manual) (1.5-3.5) 10^3/uL Monocytes # (Manual) (0.0-1.0) 10^3/uL Eosinophils # (Manual) (0-0.7) 10^3/uL Basophils # (Manual) (0-0.1) 10^3/uL Differential Comment RBC Morph Micro Appear (NORMAL) PT (9.9-12.6) secs INR (0.8-1.2) APTT (24.9-33.3) secs Fibrinogen (220-496) mg/dL Sodium (135-145) mmol/L Potassium (3.5-4.5) mmol/L Chloride (101-111) mmol/L Carbon Dioxide (21-32) mmol/L Anion Gap (6-13) BUN (6-20) mg/dL Creatinine (0.6-1.3) mg/dL Estimated GFR (MDRD) (>89) Glucose (74-104) mg/dL Calcium (8.5-10.3) mg/dL Total Bilirubin (0.2-1.0) mg/dL AST (10-42) IU/L ALT (10-60) IU/L Alkaline Phosphatase (42-121) IU/L Total Protein (6.4-8.9) g/dL Albumin (3.2-5.5) g/dL Globulin (2.1-4.2) g/dL Albumin/Globulin Ratio (1.0-2.2) RPR Non Reactive (Non Reactive) Blood Type Antibody Screen Crossmatch IS Only Diagnostic Imaging Diagnostic Imaging Comments: CT Report Reviewed: PROCEDURE: CT Angio Chest INDICATIONS: r/o PE CONTRAST: OMNI 300 80ML TECHNIQUE: After the administration of intravenous contrast, 2 mm axial images were acquired from the pulmonary apices to the posterior costophrenic angles during the arterial phase. In addition, 1 mm lung kernel and 5 mm soft tissue kernel reconstructions were performed. 3-dimensional coronal oblique maximum intensity projection (MIP) reformats, 8 mm axial MIP, and 5 mm coronal and sagittal MPR reformats were then performed through the thorax. For radiation dose reduction, the following was used: automated exposure control, adjustment of mA and/or kV according to patient size. COMPARISON: None. FINDINGS: Image quality: Excellent. Large vessels: No filling defects within the opacified pulmonary arteries, accounting for motion and contrast timing. No evidence of acute aortic syndrome or aortic aneurysm. Lungs and pleura: No consolidation. Small bilateral pleural effusions with bibasilar atelectasis.. No pneumothorax. No suspicious pulmonary nodules which require follow up. Mediastinum: Heart size is normal. No pericardial effusion. No large vessel abnormality. No mediastinal adenopathy by size criteria. Chest wall and lower neck: Thyroid is unremarkable. No axillary or supraclavicular adenopathy by size. Bones: No aggressive osseous abnormality. Upper Abdomen: Small focus of gas is seen under the right hemidiaphragm that is likely related to recent abdominal surgery. IMPRESSION: 1. No acute pulm embolus. 2. Small bilateral pleural effusions with bibasilar atelectasis. Reviewed by: Kentrell Blanco MD on 01/08/2025 9:26 AM PDT Approved by: Kentrell Blanco MD on 01/08/2025 9:26 AM PDT Assessment/Plan Problem List (1) Delivery by section of full-term : Impression: - Continue routine care. Encourage ambulation today. (2) Chorioamnionitis, delivered, current hospitalization: Impression: - Tmax was 102.9 on 01/06 at 12:41, prior to delivery. She has been afebrile after delivery (after delivery, Tmax was yesterday morning 100.0F at 07:36). We have been trending her WBC which is not yet downtrending (20.6 -> 21.1 -> 21.2). Plan to coninue antibiotics until tomorrow morning and then will likely discontinue them. (3) hemorrhage, delivered, current hospitalization: Impression: - Bleeding now appropriate, continue to monitor. (4) Pre-eclampsia in third trimester: Impression: - BPs normal to mild range. No symptoms or lab evidence to indicate preeclampsia with severe features. Continue to monitor. (5) Acute blood loss anemia: Impression: - One unit of pRBCs today per Dr. Mejia's plan earlier this AM. (6) Hypoxia: Impression: O2 saturations dropping to upper 80's this morning and Kenzie reporting intermittent chest pressure (positional), using O2 intermittently. O2 saturation does improve with use of incentive spirometer and deep breaths. At bedside, watched O2 saturations for several minutes with Kenzie resting and levels remained between 92%-95% without 02. Chest pressure currently resolved. Clinically, does not appear to be fluid overloaded. - CT was negative for PE, did show small bilateral pleural effusion with bibasilar atelectasis. Continue to encourage incentive spirometer and encouraged to use hourly while awake. - Discussed with RN using supplemental O2 levels if drop below 92%. - Checked BNP which is elevated, which can be normal , however, echo ordered to evaluate for cardiac dysfunction. If O2 levels continue to be abnormal, will consult medicine team. Echo pending.
[2025-01-08] MEDS ORDERED: SODIUM CHLORIDE 0.9% 500 ML IV ONE (11:51)
[2025-01-08] MEDS ORDERED: SODIUM CHLORIDE 0.9% 1,000 ML ONE (11:52)
--- NOTE | 2025-01-08 18:01 | ECHO Report ---
Version: 1 Study ID: [id number] [id number] Adult Echocardiogram Report Name: MARIA DEL ROSARIO DAMIAN Study Date: 01/08/2025, 11: 38 AM BP: 135 / 92 mmHg Patient [facility]: [facility]^01 HR: 75 bpm : 1985 (MM/DD/YYYY) Gender: Female Height: 61 in Age: 39 Years Weight: 125 lb BSA: 1.55 m² Reason For Study: low 02 saturations, chest pressure History: low 02 saturations, chest pressure s/p complicated by hemorrhage h/o pre-eclampsia Interpretation Summary Global left ventricular systolic function is normal. The right ventricular systolic function is normal. No concerning cardiac valve disease is noted. Left Ventricle: The left ventricle is normal in size. There is normal left ventricular wall thickness. Global left ventricular systolic function is normal. The visual left ventricular ejection fraction is estimated at 60 to 65%. The average peak Global Longitudinal Systolic (GLS) Strain is -21%. No regional wall motion abnormalities are present. The overall diastolic pattern is one of normal left ventricular relaxation and filling pressures. Right Ventricle: The right ventricle is normal in size and function. The basal right ventricular diameter measured from a right ventricular focused view is 3.7 cm. The right ventricular systolic function is normal. The tricuspid annular plane systolic excursion (TAPSE) measurement is 2.2 cm. Aortic Valve: The aortic valve is trileaflet. The aortic valve is normal in structure and function. No aortic regurgitation is present. Mitral Valve: The mitral valve leaflets are structurally normal with normal motion. No evidence of mitral stenosis is seen. There is mild mitral regurgitation. Tricuspid Valve: The tricuspid valve is visually normal in structure and function. Mild tricuspid regurgitation present. Pulmonic Valve: The pulmonic valve is normal in structure and function. There is no pulmonic valvular stenosis. Trace pulmonic valvular regurgitation is present. Left Atrium: The left atrial size is normal. The left atrial volume indexed to body surface area is 26 ml/m2. This refers to the maximal volume measured prior to mitral valve opening. Right Atrium: Right atrial size is normal. The inferior vena cava is normal in diameter (<2.1cm) and there is complete collapse with inspiration (estimated right atrial pressure 0-5mmHg). Atrial Septum: The interatrial septum appears normal, without evidence of shunt by 2D imaging and color Doppler. Aorta: The ascending aorta is normal in size. The diameter of the ascending aorta is 2.9 cm. The sinuses of Valsalva are normal in size. The aorta at the sinus of Valsalva measures 2.8cm. Pulmonary Artery: The pulmonary artery systolic pressure, calculated from a peak tricuspid regurgitant velocity in conjunction with an estimated right atrial pressure, is 34mmHg. Pericardium/Pleural Space: There is no pericardial effusion. A right pleural effusion is present. Left Ventricle IVSd: 0.79 cm LVIDd: 3.9 cm LVPWd: 0.81 cm LVIDs: 2.49 cm EDV(MOD-sp4): 45.5 ml LVLd ap4: 7.3 cm ESV(MOD-sp4): 16.9 ml ESV(sp4-el): 39.9 ml LVLs ap4: 6.1 cm EDV(MOD-sp2): 54.9 ml ESV(MOD-sp2): 19.4 ml Right Ventricle TAPSE: 2.20 cm Atria LA dimension: 4.9 cm LAV(MOD-sp4): 37.7 ml LAV(MOD-sp2): 36.5 ml Diastolic Function Pulm A Revs Tim: 22.3 cm/sec Pulm A Revs Dur: 0.13 sec MV dec time: 0.10 sec MV E max tim: 108.2 cm/sec MV A max tim: 50.5 cm/sec Aortic Valve LV V1 mean P.13 mmHg LV V1 mean: 67.0 cm/sec LV V1 VTI: 22.1 cm LV V1 max: 105.2 cm/sec LV V1 max P.4 mmHg Ao max P.3 mmHg Ao V2 max: 103.8 cm/sec Tricuspid Valve TR max P.8 mmHg TR max tim: 268.2 cm/sec TV max P.8 mmHg Aorta Ao root diam: 2.8 cm MMode/2D Measurements & Calculations Ao root diam: 2.8 cm BMI: 23.6 kilograms/m² BSA(Haycock): 1.57 m² EDV(MOD-sp2): 54.9 ml EDV(MOD-sp4): 45.5 ml EF (est.): 62.8 % EF Mod BP: 63.8 % ESV(MOD-sp2): 19.4 ml ESV(MOD-sp4): 16.9 ml ESV(sp4-el): 39.9 ml IVSd: 0.79 cm LA A4C-A/L: 15.1 cm² LA dimension: 4.9 cm LA ESV-A/L: 36.8 ml LAV(MOD-sp2): 36.5 ml LAV(MOD-sp4): 37.7 ml LVIDd: 3.9 cm LVIDs: 2.49 cm LVLd ap4: 7.3 cm LVLs ap4: 6.1 cm LVPWd: 0.81 cm TAPSE: 2.20 cm Doppler Measurements & Calculations Ao max P.3 mmHg Ao V2 max: 103.8 cm/sec Lat E/e': 8.3 LV V1 max: 105.2 cm/sec LV V1 max P.4 mmHg LV V1 mean: 67.0 cm/sec LV V1 mean P.13 mmHg LV V1 VTI: 22.1 cm Med E/e': 10.0 MV A max tim: 50.5 cm/sec MV dec time: 0.10 sec MV DVI-pr: 2.14 MV E max tim: 108.2 cm/sec PA max P.60 mmHg PA V2 max: 63.2 cm/sec Pulm A Revs Dur: 0.13 sec Pulm A Revs Tim: 22.3 cm/sec RAP systole: 5.0 mmHg TR max P.8 mmHg TR max tim: 268.2 cm/sec TV max P.8 mmHg Other Measurements & Calculations Ao root area: 6.1 cm² EDV(Teich): 66.6 ml EF(MOD-sp2): 64.7 % EF(MOD-sp4): 62.8 % EF(sp-el): 57.5 % EF(Teich): 66.7 % ESV(Teich): 22.2 ml FS: 36.4 % MV E/A: 2.14 RVSP(TR): 33.8 mmHg SV(MOD-sp4): 28.6 ml Procedure Notes: A complete two-dimensional transthoracic echocardiogram was performed (2D, M- mode, Doppler and color flow Doppler). Indication: Evaluate cardiac and valve function. The study was done with the patient in the supine position, due to inability to lie on the left side. The underlying rhythm was sinus. CPT Codes: 37328/[id number]: Transthoracic Echo with Spectral and Color Doppler. MD Idalmis Jameson 01/08/2025, 6: 01 PM Ordering Physician: Madisyn Marcelino Referring Physician: Beth Naranjo Performed By: Imani Saleem RDCS
--- NOTE | 2025-01-08 18:09 | PROVIDER PROGRESS NOTE ---
Subjective Prog Note Date Prog Note Date: 01/08/25 Prog Note Time: 18:04 Subjective Subjective: Kenzie seen at bedside again this afternoon. Reports that she is overall feeling better. Feels "more alive" after her blood transfusion. Has been ambulating in the room and sitting up in the chair this afternoon. Not requiring oxygen supplementation. Ready to see baby Megan who should be discharging home tomorrow. For this evening, I encourgaed ambulation and use of incentive spirometer. Results of echo are still pending, however, overall she seems to be doing very well. Will continue to monitor blood pressures closely, consider starting antihypertensive if they continue to increase. Anticipate discontinuation of antibiotics in the morning. Needs another blood draw this evening since T&S is expiring, so will go ahead and repeat CBC with that draw instead of in the morning. Current Medications Current Medications Current Medications: Current Medications Generic Name Dose Route Start Last Admin Trade Name Freq PRN Reason Stop Dose Admin Acetaminophen 1,000 mg 01/06/25 11:58 01/06/25 12:02 Acetaminophen 500 Mg Tablet PO 1,000 mg Q6HR PRN Administration Pain or Fever > 38C (100.4F) Acetaminophen 1,000 mg 01/06/25 17:00 01/08/25 17:02 Acetaminophen 500 Mg Tablet PO 1,000 mg Q8H JONH Administration Calcium Carbonate/Glycine 1,000 mg 01/06/25 16:02 Calcium Carbonate Chew 500 Mg Tablet PO Q6HR PRN Heartburn Carboprost Tromethamine 250 mcg 01/05/25 19:20 Carboprost Tromethamine 250 Mcg/Ml Vial IM .ONCE PRN Hemorrhage Carboprost Tromethamine 250 mcg 01/06/25 16:02 Carboprost Tromethamine 250 Mcg/Ml Vial IM .ONCE PRN Hemorrhage Cetirizine HCl 10 mg 01/05/25 19:34 Cetirizine 10 Mg Tablet PO Q24H PRN Allergy Symptoms Diphenhydramine HCl 12.5 - 25 mg 01/06/25 10:13 Diphenhydramine Inj 50 Mg/Ml Vial IVP Q6HR PRN ITCHING Docusate Sodium 200 mg 01/06/25 21:00 01/08/25 08:36 Docusate Sodium 100 Mg Capsule PO 200 mg BID JONH Administration Ephedrine Sulfate 5 mg 01/06/25 10:13 Ephedrine 50 Mg/Ml Vial IVP Q5M PRN For SBP<100;give until SBP>100 Fentanyl 50 mcg 01/05/25 19:20 Fentanyl 100 Mcg/2 Ml Vial IVP Q1H PRN Severe Pain (score 7-10) Fluticasone Propionate 1 sprays 01/05/25 19:28 Fluticasone Nasal Normanna WALTER DAILY PRN Allergy Symptoms Hydralazine HCl 10 mg 01/05/25 19:16 Hydralazine Inj 20 Mg/Ml Vial IVP .ONCE PRN SBP> or= 160 OR DBP> or= 110 Hydralazine HCl 5 - 10 mg 01/05/25 19:16 Hydralazine Inj 20 Mg/Ml Vial IVP Q20M PRN SBP> or= 160 OR DBP> or= 110 Protocol Hydralazine HCl 10 mg 01/06/25 16:02 Hydralazine Inj 20 Mg/Ml Vial IVP .ONCE PRN SBP> or= 160 OR DBP> or= 110 Protocol Hydralazine HCl 5 - 20 mg 01/06/25 16:02 Hydralazine Inj 20 Mg/Ml Vial IVP Q20M PRN SBP> or= 160 OR DBP> or= 110 Protocol Lactated Ringer's 500 mls @ 999 mls/hr 01/05/25 19:20 Lr IV PRN PRN Heart Rate Abnormalities Oxytocin/Sodium Chloride 500 mls @ 999 mls/hr 01/05/25 19:20 01/07/25 04:13 Pitocin/Sodium Chloride IV 200 milliunit/min PRN PRN 200 mls/hr POST- HEMORR PREVENTION Administration Protocol 999 MILLIUNIT/MIN Tranexamic Acid 1,000 mg in 100 mls @ 600 mls/hr 01/05/25 19:20 01/07/25 05:16 Tranexamic 1,000 Mg/100ml-Nacl IV 600 mls/hr Q30M PRN Administration EBL >1200mL and within 3hr Ropivacaine 200 mg in 100 mls @ 0 mls/hr 01/06/25 10:13 Naropin 0.2% EP PRN PRN PAIN Protocol Per Protocol Lactated Ringer's 1,000 mls @ 125 mls/hr 01/06/25 14:00 01/07/25 00:25 Lr IV 125 mls/hr .Q8H JONH Administration Oxytocin/Sodium Chloride 500 mls @ 999 mls/hr 01/06/25 16:02 Pitocin/Sodium Chloride IV PRN PRN POST- HEMORR PREVENTION Protocol 999 MILLIUNIT/MIN Tranexamic Acid 1,000 mg in 100 mls @ 500 mls/hr 01/06/25 16:02 Tranexamic 1,000 Mg/100ml-Nacl IV PRN PRN Uterine atony/ Uterine Bleed Clindamycin/Sodium Chloride 900 mg in 50 mls @ 50 mls/hr 01/06/25 22:00 01/08/25 09:21 Cleocin 900 Mg/50 Ml IV 50 mls/hr Q8HR JONH Administration Gentamicin Sulfate 255 mg/ 106.375 mls @ 100 mls/hr 01/09/25 12:00 Sodium Chloride IV Q24H JONH Ibuprofen 600 mg 01/07/25 12:00 01/08/25 15:26 Ibuprofen 600 Mg Tablet PO 600 mg Q6HR JONH Administration Labetalol HCl 20 mg 01/05/25 19:16 Labetalol 20 Mg/4 Ml Syringe IVP .ONCE PRN SBP> or= 160 OR DBP> or= 110 Labetalol HCl 20 - 80 mg 01/05/25 19:16 Labetalol 20 Mg/4 Ml Syringe IVP Q10M PRN SBP> or= 160 OR DBP> or= 110 Protocol Labetalol HCl 20 - 40 mg 01/05/25 19:16 Labetalol 20 Mg/4 Ml Syringe IVP Q10M PRN SBP> or= 160 OR DBP> or= 110 Protocol Labetalol HCl 20 - 40 mg 01/06/25 16:02 Labetalol 20 Mg/4 Ml Syringe IVP Q10M PRN SBP> or= 160 OR DBP> or= 110 Protocol Labetalol HCl 20 mg 01/06/25 16:02 Labetalol 20 Mg/4 Ml Syringe IVP .ONCE PRN SBP> or= 160 OR DBP> or= 110 Protocol Labetalol HCl 20 - 80 mg 01/06/25 16:02 Labetalol 20 Mg/4 Ml Syringe IVP Q10M PRN SBP> or= 160 OR DBP> or= 110 Protocol Lidocaine HCl 20 ml 01/05/25 19:20 Lidocaine 1% 20 Ml Mdv ID 01/08/25 19:21 .ONCE PRN PERINEAL REPAIR Metoclopramide HCl 10 mg 01/06/25 10:13 Metoclopramide 10 Mg/2 Ml Vial IVP Q6HR PRN Nausea / Vomiting Misoprostol 800 mcg 01/05/25 19:20 Misoprostol 200 Mcg Tablet ID .ONCE PRN Hemorrhage Nalbuphine HCl 2.5 - 5 mg 01/06/25 10:13 Nalbuphine 10 Mg/Ml Amp IVP Q4H PRN ITCHING Naloxone HCl 0.1 mg 01/06/25 10:13 Naloxone 0.4 Mg/Ml Vial IVP Q2M PRN RR<8 Naloxone HCl 0.4 mg 01/06/25 16:02 Naloxone 0.4 Mg/Ml Vial IVP .ONCE PRN Opioid overdose Nifedipine 10 - 20 mg 01/05/25 19:16 Nifedipine 10 Mg Capsule PO Q20M PRN SBP> or= 160 OR DBP> or= 110 Protocol Nifedipine 10 - 20 mg 01/06/25 16:02 Nifedipine 10 Mg Capsule PO Q20M PRN SBP> or= 160 OR DBP> or= 110 Protocol Ondansetron HCl 4 mg 01/06/25 08:10 01/06/25 08:50 Ondansetron 4 Mg/2 Ml Vial IVP 4 mg Q4HR PRN Administration Nausea / Vomiting Ondansetron HCl 4 mg 01/06/25 10:13 Ondansetron 4 Mg/2 Ml Vial IVP Q6HR PRN Nausea / Vomiting Oxycodone HCl 2.5 mg 01/07/25 22:03 01/08/25 10:38 Oxycodone 5 Mg Tablet PO 2.5 mg Q4HR PRN Administration Pain or Fever > 38C (100.4F) Oxytocin 10 unit 01/05/25 19:20 Oxytocin 10 Unit/Ml Vial IM .ONCE PRN Step One if no IV access. Multivit/Folic Acid/Iron 1 tab 01/06/25 08:00 Vitamin Tablet PO DAILYWM JONH Simethicone 80 mg 01/06/25 16:02 01/08/25 15:26 Simethicone Chew 80 Mg Tablet PO 80 mg TID PRN Administration Gas Sodium Chloride 10 ml 01/05/25 20:00 01/08/25 08:15 Sodium Chloride Flush 0.9% 10 Ml Syringe IVP 10 ml Q8H JONH Administration Sodium Chloride 10 ml 01/05/25 19:16 Sodium Chloride Flush 0.9% 10 Ml Syringe IVP PRN PRN NEEDED PER PROVIDER ORDERS Objective Vital Signs/Intake & Output Vital Signs: Vital Signs x48h Temp Pulse Resp BP BP Pulse Ox 01/08/25 15:28 36.7 C 64 16 142/91 H 97 01/08/25 14:50 36.7 C 64 16 138/92 H 01/08/25 12:17 36.9 C 71 16 121/84 93 01/08/25 12:03 36.9 C 75 16 138/85 H 94 Intake & Output: Intake & Output 01/05/25 01/06/25 01/07/25 01/08/25 23:59 23:59 23:59 23:59 Intake Total 200 / 200 4656.375 / 4656.375 1506.375 / 1506.375 65 / 65 Output Total 100 / 100 2675 / 2675 2229 / 2229 1100 / 1100 Balance 100 / 100 1981.375 / 1981.375 -722.625 / -722.625 -1035 / -1035 Weight (kg) 56.6 kg 56.699 kg Lab Results 01/08/25 05:45 01/08/25 05:45 Other Labs: Lab Results x24hrs 01/08/25 01/05/25 01/05/25 Range/Units 05:45 21:00 19:56 WBC 21.2 H (4.8-10.8) x10^3/uL RBC 2.66 L (4.20-5.40) 10^6/uL Hgb 8.4 L (12.0-16.0) g/dL Hct 24.8 L (37.0-47.0) % MCV 93.2 (81.0-99.0) fL MCH 31.6 H (27.0-31.0) pg MCHC 33.9 (32.0-36.0) g/dL RDW 14.1 (12.0-15.0) % Plt Count 114 L (130-450) 10^3/uL MPV 9.7 (7.9-10.8) fL Sodium 138 (135-145) mmol/L Potassium 4.0 (3.5-4.5) mmol/L Chloride 109 (101-111) mmol/L Carbon Dioxide 25 (21-32) mmol/L Anion Gap 4.0 L (6-13) BUN 12 (6-20) mg/dL Creatinine 0.9 (0.6-1.3) mg/dL Estimated GFR (MDRD) 70 L (>89) Glucose 98 (74-104) mg/dL Calcium 7.3 L (8.5-10.3) mg/dL Total Bilirubin 0.3 (0.2-1.0) mg/dL AST 20 (10-42) IU/L ALT 12 (10-60) IU/L Alkaline Phosphatase 97 (42-121) IU/L B-Natriuretic Peptide 446 H (5-100) pg/mL Total Protein 4.9 L (6.4-8.9) g/dL Albumin 2.5 L (3.2-5.5) g/dL Globulin 2.4 (2.1-4.2) g/dL Albumin/Globulin Ratio 1.0 (1.0-2.2) RPR Non Reactive (Non Reactive) Blood Type B POSITIVE Antibody Screen NEGATIVE Crossmatch IS Only See Detail Assessment/Plan Problem List (1) Delivery by section of full-term : (2) Chorioamnionitis, delivered, current hospitalization: (3) hemorrhage, delivered, current hospitalization: (4) Pre-eclampsia in third trimester: (5) Acute blood loss anemia: (6) Hypoxia:
[2025-01-08 20:45] LABS: HCT - HEMATOCRIT 28.0 % (37.0-47.0); HGB - HEMOGLOBIN 9.5 g/dL (12.0-16.0); MEAN PLATELET VOLUME 10.3 fL (7.9-10.8); NRBC ABSOLUTE COUNT (AUTO) 0.14 x10^3/uL; NUCLEATED RED BLOOD CELLS AUTO 0.7 /100WBC; PLT - PLATELET COUNT 128 10^3/uL (130-450); RED CELL DISTRIBUTION WIDTH 15.3 % (12.0-15.0)
[2025-01-08] MEDS: hydrALAZINE INJ 20 MG/ML VIAL IVP PRN (21:39)
[2025-01-08 21:47] LABS: PLATELET MORPHOLOGY NORMAL APPEARANCE (NORMAL); RBC MORPHOLOGY (MULTIPLE) NORMAL APPEARANCE (NORMAL)
[2025-01-08 21:48] LABS: PLATELET ESTIMATE, MANUAL DECREASED (<130,000) (NORMAL)
[2025-01-08] MEDS: NIFEdipine ER 30 MG TABLET PO SCH (22:48)
[2025-01-09] MEDS: NIFEdipine ER 30 MG TABLET PO STA (01:42)
--- NOTE | 2025-01-09 09:14 | PROVIDER PROGRESS NOTE ---
Subjective Prog Note Date Prog Note Date: 01/09/25 Prog Note Time: 10:12 Subjective Pt reports feeling: Improved Subjective: Kenzie is a 39yo with pre-eclampsia and chorioamionitis now on POD#3 from a PLTCS complicated by hemorrhage requiring 1u PRBCs. Kenzie reports feeling well this morning. Her pain is well controlled at 2/10 with Tylenol and Ibuprofen. She endorsed headaches and fogginess associated with Oxycodone, which she has stopped taking and she denies continued headaches or vision changes. She has been able to ambulate to the bathroom and is urinating without difficulty. She had another BM this morning. She has minimal lochia. Her baby is being DC'ed from the NICU today and will be joining her here. Yesterday she had an EKG with T wave abnormalities and CT was done to evaluate for PE which was negative, but showed small bilateral pleural effusions with bibasilar atelectasis. She denies chest pain or shortness of breath today and endorses using the incentive spirometer. Current Medications Current Medications Current Medications: Current Medications Generic Name Dose Route Start Last Admin Trade Name Freq PRN Reason Stop Dose Admin Acetaminophen 1,000 mg 01/06/25 11:58 01/06/25 12:02 Acetaminophen 500 Mg Tablet PO 1,000 mg Q6HR PRN Administration Pain or Fever > 38C (100.4F) Acetaminophen 1,000 mg 01/06/25 17:00 01/09/25 08:35 Acetaminophen 500 Mg Tablet PO 1,000 mg Q8H JONH Administration Calcium Carbonate/Glycine 1,000 mg 01/06/25 16:02 Calcium Carbonate Chew 500 Mg Tablet PO Q6HR PRN Heartburn Carboprost Tromethamine 250 mcg 01/05/25 19:20 Carboprost Tromethamine 250 Mcg/Ml Vial IM .ONCE PRN Hemorrhage Carboprost Tromethamine 250 mcg 01/06/25 16:02 Carboprost Tromethamine 250 Mcg/Ml Vial IM .ONCE PRN Hemorrhage Cetirizine HCl 10 mg 01/05/25 19:34 Cetirizine 10 Mg Tablet PO Q24H PRN Allergy Symptoms Diphenhydramine HCl 12.5 - 25 mg 01/06/25 10:13 Diphenhydramine Inj 50 Mg/Ml Vial IVP Q6HR PRN ITCHING Docusate Sodium 200 mg 01/06/25 21:00 01/09/25 08:35 Docusate Sodium 100 Mg Capsule PO 200 mg BID JONH Administration Ephedrine Sulfate 5 mg 01/06/25 10:13 Ephedrine 50 Mg/Ml Vial IVP Q5M PRN For SBP<100;give until SBP>100 Fentanyl 50 mcg 01/05/25 19:20 Fentanyl 100 Mcg/2 Ml Vial IVP Q1H PRN Severe Pain (score 7-10) Fluticasone Propionate 1 sprays 01/05/25 19:28 Fluticasone Nasal Lowber WALTER DAILY PRN Allergy Symptoms Hydralazine HCl 5 - 10 mg 01/05/25 19:16 Hydralazine Inj 20 Mg/Ml Vial IVP Q20M PRN SBP> or= 160 OR DBP> or= 110 Protocol Hydralazine HCl 10 mg 01/06/25 16:02 Hydralazine Inj 20 Mg/Ml Vial IVP .ONCE PRN SBP> or= 160 OR DBP> or= 110 Protocol Hydralazine HCl 5 - 20 mg 01/06/25 16:02 Hydralazine Inj 20 Mg/Ml Vial IVP Q20M PRN SBP> or= 160 OR DBP> or= 110 Protocol Lactated Ringer's 500 mls @ 999 mls/hr 01/05/25 19:20 Lr IV PRN PRN Heart Rate Abnormalities Oxytocin/Sodium Chloride 500 mls @ 999 mls/hr 01/05/25 19:20 01/07/25 04:13 Pitocin/Sodium Chloride IV 200 milliunit/min PRN PRN 200 mls/hr POST- HEMORR PREVENTION Administration Protocol 999 MILLIUNIT/MIN Tranexamic Acid 1,000 mg in 100 mls @ 600 mls/hr 01/05/25 19:20 01/07/25 05:16 Tranexamic 1,000 Mg/100ml-Nacl IV 600 mls/hr Q30M PRN Administration EBL >1200mL and within 3hr Ropivacaine 200 mg in 100 mls @ 0 mls/hr 01/06/25 10:13 Naropin 0.2% EP PRN PRN PAIN Protocol Per Protocol Lactated Ringer's 1,000 mls @ 125 mls/hr 01/06/25 14:00 01/07/25 01:00 Lr IV 0 mls/hr .Q8H JONH Infusion Oxytocin/Sodium Chloride 500 mls @ 999 mls/hr 01/06/25 16:02 Pitocin/Sodium Chloride IV PRN PRN POST- HEMORR PREVENTION Protocol 999 MILLIUNIT/MIN Tranexamic Acid 1,000 mg in 100 mls @ 500 mls/hr 01/06/25 16:02 Tranexamic 1,000 Mg/100ml-Nacl IV PRN PRN Uterine atony/ Uterine Bleed Ibuprofen 600 mg 01/07/25 12:00 01/09/25 04:05 Ibuprofen 600 Mg Tablet PO 600 mg Q6HR JONH Administration Labetalol HCl 20 mg 01/05/25 19:16 Labetalol 20 Mg/4 Ml Syringe IVP .ONCE PRN SBP> or= 160 OR DBP> or= 110 Labetalol HCl 20 - 80 mg 01/05/25 19:16 Labetalol 20 Mg/4 Ml Syringe IVP Q10M PRN SBP> or= 160 OR DBP> or= 110 Protocol Labetalol HCl 20 - 40 mg 01/05/25 19:16 Labetalol 20 Mg/4 Ml Syringe IVP Q10M PRN SBP> or= 160 OR DBP> or= 110 Protocol Labetalol HCl 20 - 40 mg 01/06/25 16:02 Labetalol 20 Mg/4 Ml Syringe IVP Q10M PRN SBP> or= 160 OR DBP> or= 110 Protocol Labetalol HCl 20 mg 01/06/25 16:02 Labetalol 20 Mg/4 Ml Syringe IVP .ONCE PRN SBP> or= 160 OR DBP> or= 110 Protocol Labetalol HCl 20 - 80 mg 01/06/25 16:02 Labetalol 20 Mg/4 Ml Syringe IVP Q10M PRN SBP> or= 160 OR DBP> or= 110 Protocol Metoclopramide HCl 10 mg 01/06/25 10:13 Metoclopramide 10 Mg/2 Ml Vial IVP Q6HR PRN Nausea / Vomiting Misoprostol 800 mcg 01/05/25 19:20 Misoprostol 200 Mcg Tablet MD .ONCE PRN Hemorrhage Nalbuphine HCl 2.5 - 5 mg 01/06/25 10:13 Nalbuphine 10 Mg/Ml Amp IVP Q4H PRN ITCHING Naloxone HCl 0.1 mg 01/06/25 10:13 Naloxone 0.4 Mg/Ml Vial IVP Q2M PRN RR<8 Naloxone HCl 0.4 mg 01/06/25 16:02 Naloxone 0.4 Mg/Ml Vial IVP .ONCE PRN Opioid overdose Nifedipine 10 - 20 mg 01/05/25 19:16 Nifedipine 10 Mg Capsule PO Q20M PRN SBP> or= 160 OR DBP> or= 110 Protocol Nifedipine 10 - 20 mg 01/06/25 16:02 Nifedipine 10 Mg Capsule PO Q20M PRN SBP> or= 160 OR DBP> or= 110 Protocol Nifedipine 60 mg 01/09/25 21:00 Nifedipine Er 30 Mg Tablet PO DAILY JONH Ondansetron HCl 4 mg 01/06/25 08:10 01/06/25 08:50 Ondansetron 4 Mg/2 Ml Vial IVP 4 mg Q4HR PRN Administration Nausea / Vomiting Ondansetron HCl 4 mg 01/06/25 10:13 Ondansetron 4 Mg/2 Ml Vial IVP Q6HR PRN Nausea / Vomiting Oxycodone HCl 2.5 mg 01/07/25 22:03 01/08/25 10:38 Oxycodone 5 Mg Tablet PO 2.5 mg Q4HR PRN Administration Pain or Fever > 38C (100.4F) Oxytocin 10 unit 01/05/25 19:20 Oxytocin 10 Unit/Ml Vial IM .ONCE PRN Step One if no IV access. Multivit/Folic Acid/Iron 1 tab 01/06/25 08:00 Vitamin Tablet PO DAILYWM JONH Simethicone 80 mg 01/06/25 16:02 01/09/25 08:35 Simethicone Chew 80 Mg Tablet PO 80 mg TID PRN Administration Gas Sodium Chloride 10 ml 01/05/25 20:00 01/09/25 08:31 Sodium Chloride Flush 0.9% 10 Ml Syringe IVP 10 ml Q8H JONH Administration Sodium Chloride 10 ml 01/05/25 19:16 Sodium Chloride Flush 0.9% 10 Ml Syringe IVP PRN PRN NEEDED PER PROVIDER ORDERS Objective Vital Signs/Intake & Output Reviewed Vital Signs: Yes Vital Signs: Vital Signs x48h Temp Pulse Pulse Resp BP Pulse Ox 01/09/25 08:10 36.7 C 76 16 135/79 H 100 01/09/25 06:10 62 135/90 H 01/09/25 05:00 57 L 135/88 H 01/09/25 04:12 65 16 130/84 96 01/09/25 03:30 65 133/89 H 01/09/25 03:00 55 L 132/88 H 01/09/25 02:30 60 145/94 H 01/09/25 02:15 61 142/90 H 01/09/25 02:00 55 L 132/88 H 01/09/25 02:00 36.8 C 01/09/25 01:40 62 145/99 H 01/09/25 01:15 57 L 157/98 H Intake & Output: Intake & Output 01/06/25 01/07/25 01/08/25 01/09/25 23:59 23:59 23:59 23:59 Intake Total 4656.375 / 4656.375 1579.375 / 1579.375 165 / 165 50 / 50 Output Total 2675 / 2675 2229 / 2229 1100 / 1100 Balance 1981.375 / 1981.375 -649.625 / -649.625 -935 / -935 50 / 50 Weight (kg) 125 lb Objective General Appearance: positive No acute distress and Alert Eyes Bilateral: positive Normal inspection ENT: positive No signs of dehydration Neck: positive Nml inspection and Trachea midline Respiratory: positive No respiratory distress Cardiovascular: positive Regular rate & rhythm Abdomen: positive Tenderness (Appropriate tenderness to light palpation. ) and Other (Fundus firm at the umbilicus. ); negative Guarding or Rebound Skin: positive Warm and Dry Extremities: positive No pedal edema Neurologic/Psychiatric: positive Oriented x3 Lab Results 01/08/25 20:33 01/08/25 05:45 Other Labs: Lab Results x24hrs 01/08/25 01/08/25 01/05/25 Range/Units 20:33 05:45 21:00 WBC 20.8 H (4.8-10.8) x10^3/uL RBC 3.10 L (4.20-5.40) 10^6/uL Hgb 9.5 L (12.0-16.0) g/dL Hct 28.0 L (37.0-47.0) % MCV 90.3 (81.0-99.0) fL MCH 30.6 (27.0-31.0) pg MCHC 33.9 (32.0-36.0) g/dL RDW 15.3 H (12.0-15.0) % Plt Count 128 L (130-450) 10^3/uL MPV 10.3 (7.9-10.8) fL Neut # (Auto) 16.8 H (1.5-6.6) 10^3/uL Lymph # (Auto) 2.0 (1.5-3.5) 10^3/uL [place] # (Auto) 0.8 (0.0-1.0) 10^3/uL Eos # (Auto) 0.1 (0.0-0.7) 10^3/uL Baso # (Auto) 0.1 (0.0-0.1) 10^3/uL Absolute Nucleated RBC 0.14 x10^3/uL Total Counted Not Reportable Band Neuts % (Manual) Not Reportable Reactive Lymphs % (Man) Not Reportable Abnorm Lymph % (Manual) Not Reportable Nucleated RBC % 0.7 /100WBC Neutrophils # (Manual) Not Reportable Lymphocytes # (Manual) Not Reportable Monocytes # (Manual) Not Reportable Eosinophils # (Manual) Not Reportable Basophils # (Manual) Not Reportable Platelet Estimate DECREASED (<130,000) (NORMAL) Platelet Morphology NORMAL APPEARANCE (NORMAL) RBC Morph Micro Appear NORMAL APPEARANCE (NORMAL) Sodium 138 (135-145) mmol/L Potassium 4.0 (3.5-4.5) mmol/L Chloride 109 (101-111) mmol/L Carbon Dioxide 25 (21-32) mmol/L Anion Gap 4.0 L (6-13) BUN 12 (6-20) mg/dL Creatinine 0.9 (0.6-1.3) mg/dL Estimated GFR (MDRD) 70 L (>89) Glucose 98 (74-104) mg/dL Calcium 7.3 L (8.5-10.3) mg/dL Total Bilirubin 0.3 (0.2-1.0) mg/dL AST 20 (10-42) IU/L ALT 12 (10-60) IU/L Alkaline Phosphatase 97 (42-121) IU/L B-Natriuretic Peptide 446 H (5-100) pg/mL Total Protein 4.9 L (6.4-8.9) g/dL Albumin 2.5 L (3.2-5.5) g/dL Globulin 2.4 (2.1-4.2) g/dL Albumin/Globulin Ratio 1.0 (1.0-2.2) Blood Type B POSITIVE B POSITIVE Antibody Screen NEGATIVE NEGATIVE Crossmatch IS Only See Detail ABX Reporting Has patient been on IV antibiotics over the past 48 hours?: No Assessment/Plan Problem List (1) Delivery by section of full-term infant: Impression: Routine postop care. Anticipate discharge tomorrow. (2) Chorioamnionitis, delivered, current hospitalization: Impression: Tmax was 102.9 on 01/06 at 12:41, prior to delivery. She has been afebrile since delivery. WBC stable 20.6 > 21.1 > 21.2 > 20.8. Discontinue antibiotics today. (3) hemorrhage, delivered, current hospitalization: Impression: Status post 1u PRBC. Hgb improve 8.4 > 9.5. Feels much better. (4) Pre-eclampsia in third trimester: Impression: BP stable in 130-140s/80-90s overnight. Platelets have been uptrending 104k >> 128k. No symptoms to indicate pre-eclampsia with severe features. Continue to monitor overnight. (5) Acute blood loss anemia: Impression: As above. (6) Hypoxia: Impression: Resolved.
[2025-01-09] MEDS: PRENATAL VITAMIN TABLET PO SCH (11:42)
[2025-01-09] MEDS ORDERED: GENTAMICIN IV SCH (12:00)
[2025-01-09] MEDS ORDERED: SODIUM CHLORIDE 0.9% IV SCH (12:00)
[2025-01-10] MEDS: NIFEdipine ER 30 MG TABLET PO SCH (00:12)
[2025-01-10 07:47] VITALS: O2SAT 99
[2025-01-10 11:12] VITALS: BP 131/95; TEMP 97.9
--- NOTE | 2025-01-10 13:00 | Labor Flowsheet ---
Labor Flowsheet Datetime Report Generated by CPN: 01/10/2025 13:00 Datetime: 01/10/2025 11:09 VITAL SIGNS NBP Sys/Chery/Mean (mmHg): 146 : 103 : 113 Pulse: 86 Datetime: 01/06/2025 17:21 Membranes Ruptured Date/Time: 01/06/2025 08:29 MEDICATIONS Cervical Ripening Agents: Silvestre Balloon Datetime: 01/06/2025 14:23 Stage of : Recovery Datetime: 01/06/2025 14:21 Comments: Disconnect and head to OR Datetime: 01/06/2025 14:16 Temperature (C): 37.7 LaborFlag: Labor Datetime: 01/06/2025 13:59 UTERINE ACTIVITY Monitor Mode: External Frequency (min): 2-4 Quality: Strong Duration (sec): 40-60 Pattern: Normal: <= 5 Contractions in 10 Minutes Resting Tone (Palpate): Relaxed ASSESSMENT A Monitor Mode: External US FHR Baseline Rate : 165 Variability: Minimal - Undetectable to <=5 bpm Accelerations: None Decelerations: Late Category: Category II Datetime: 01/06/2025 13:50 Communication Comments: called by provider Datetime: 01/06/2025 13:38 Exam by: Shamika Vaginal Exam Comments: No change Datetime: 01/06/2025 13:14 Patient Care Comments: ice packs under arm and behind neck. dr shamika here at bedside. Datetime: 01/06/2025 13:09 Patient Position/Activity: High Fowlers Datetime: 01/06/2025 11:36 VAGINAL EXAM Dilatation (cm): 7.0 Effacement (%): 80 Station: 0 Datetime: 01/06/2025 11:15 Contraction Comments: unable to assess pattern Datetime: 01/06/2025 11:00 SpO2 (%): 100 Datetime: 01/06/2025 10:48 Vital Sign Comments: per Dr.Hsamika verbal- Pt shaking, BPs from 1015-current not reading accurately. COMMUNICATION Communication: Provider at Bedside Datetime: 01/06/2025 10:29 Monitor Interventions for UA: [place]rell Adjusted Datetime: 01/06/2025 10:15 Oxygen Method: Room Air Datetime: 01/06/2025 10:11 Anesthesia Comments: here to administer ephedrine per provider r/t late decles on baby Datetime: 01/06/2025 09:22 PATIENT CARE IV/Blood Work: IV Bolus Started Datetime: 01/06/2025 09:17 I/O Interventions: Silvestre Cath Inserted Datetime: 01/06/2025 08:32 ANESTHESIA Epidural Procedure: Completed Datetime: 01/06/2025 08:29 Membrane Status: Ruptured Membranes Rupture Method: Spontaneous Amniotic Fluid Color: Clear Datetime: 01/06/2025 08:24 Medication Comments: zofran Datetime: 01/06/2025 07:06 FHR Baseline Changes: No Baseline Change Provider Notified (Name): Dr Shamika Notification Reason: Status Update; Labor Status Datetime: 01/06/2025 06:32 Vaginal Bleeding: Normal Show Cervix, Consistency: Soft Cervix, Position: Posterior Datetime: 01/06/2025 06:04 PAIN Pain Scale: 7 Pain Presence: Intermittent Pain Type: Cramping; Contraction Pain Location: Abdomen; Back Pain Relief Measures: Comfort Measures Pain Coping: Breathing Through Contractions Pain Assessment Comments: using nitrous oxide Comfort Measures: Family Support Datetime: 01/06/2025 02:27 Respirations: 16 Datetime: 01/06/2025 01:52 MATERNAL ASSESSMENT Level of Consciousness: Drowsy Headache: Denies Breath Sounds, Left: Clear and Equal Breath Sounds, Right: Clear and Equal Nausea/Vomiting: Hx of Nausea/Vomiting RUQ Epigastric Pain: Denies TEACHING Instructional Method: Verbal Plan of Care: Plan of Care Discussed Unit Routine: Medications Labor/Induction: Labor Stages Pain Management: IV Narcotics; Epidural; PRN Medications; Comfort Measures Related: Activity and Rest Datetime: 01/05/2025 23:36 Actions for Decelerations: Side to Side Datetime: 01/05/2025 22:35 Pain Goal: 7 Datetime: 01/05/2025 20:30 DTR's/Clonus: DTRs 2+ Datetime: 01/05/2025 20:05 Provider Reviewed Strip: Yes
--- NOTE | 2025-01-13 18:48 | Discharge Summary ---
"Discharge Summary Admit Date: 01/05/25 Discharge Date: 01/10/25 Discharging Provider: Tomeka Mejia MD Code Status: Attempt Resuscitation DIAGNOSES Admission Diagnoses: 38 wk with preeclampsia without severe features Discharge Diagnoses with Status of Each Condition: chorioamnionitis resolved acute blood loss anemia - s/p 1 unit PRBC gestational hypertension - treated HPI History of Present Illness: 38 weeks presents to triage to check bp and found to be elevated and admitted for labor induction. uncomplicated. CONSULTS | PROCEDURES Procedures: LT CS 01/06 HOSPITAL COURSE Hospital Course: Patient admitted for induction of labor at 38+6 wks for preeclampsia without severe features. Induction was initiated with cervical ripening balloon without medical therapy. Labetalol 200 mg PO tid was started to help manage blood pressures intrapartum. The ripening balloon fell out approx 6 hrs after insertion. She continued to contract painfully and requested an epidural about 12 hrs after admission. She was 4 cm dilated. Epidural was placed, and FHT, which was previously cat 1, started to have minimal variability with frequent late decels. She progressed to 5.5 cm within one hr, then 7 cm one hr after that. However, at the time of her next exam 2 hrs later, FHT continued to have minimal to absent variability and frequent late decels. No scalp stim could be obtained, and cervix remained 7 cm. was recommended for non- reassuring FHT, remote from delivery with cat 2-3 tracing. Emergent was called, then team assembled and the patient transferred to the OR for delivery. Findings: Meconium fluid noted at time of amniotomy. Viable male infant delivered from LOT position. No nuchal cord present. The baby had good tone but minimal cry and poor color on the maternal abdomen. Cord was clamped/cut quickly, and he was handed to Dr. Escudero, [place]. Cord gases and cord blood obtained. Venous cord gas was 7.16/-5. Lab unable to obtain arterial gas. Apgars were 4 at 1 min, 7 at 5 min, and 9 at 10 min. Placenta delivered and appeared bilobed vs succenturiate with vessels running in the membrane between the lobes of placenta tissue (sent to pathology due to chorio and abnormal gross appearance). Baby was transferred to [place] at about 8 hrs of age. Baby returned to [facility] POD #3. Post op about 12 hrs she had acute blood loss episode. treated with medication and massage and bleeding stopped. Has chest pain with normal vital signs at first and then was hypoxic, requiring O2. CT angio, ECG, echo were all done and all normal. 1 unit of blood was given and symptoms improved. Likely atelectasis. She progressed slowly and was ready for discharge on POD#4. ALLERGIES Allergies Allergy/AdvReac Type Severity Reaction Status Date / Time No Known Drug Allergies Allergy Verified 12/31/24 14:43 MEDICATIONS Ambulatory Orders Medication Instructions Recorded Confirmed fluticasone propionate 50 1 spray intranasal QDAY PRN 11/30/24 01/06/25 mcg/actuation nasal allergy symptoms spray,suspension (Flonase Allergy Relief) loratadine 10 mg tablet (Claritin) 10 mg PO Q24H 11/3001/06/25 acetaminophen 325 mg capsule 325 - 650 mg (1 - 2 x 325 mg) PO 01/10/25 Q4H PRN pain #60 caps docusate sodium 100 mg capsule 100 mg PO BID PRN const ipation #60 01/10/25 (Colace) caps ferrous sulfate 325 mg (65 mg 325 mg PO Q OTHER DAY #9 0 tabs 01/10/25 iron) tablet (FeroSul) ibuprofen 600 mg tablet 600 mg PO Q6H PRN pain #30 t abs 01/10/25 nifedipine 30 mg tablet,extended 30 mg PO BID #60 tabs 01/10/25 release vitamins no.154-ferrous 1 tab PO .daily #90 t abs 01/10/25 fumarate 27 mg-folic acid 1 mg tablet simethicone 125 mg chewable tablet 125 mg PO QID PRN a bdominal 01/10/25 (Gas Relief (simethicone)) distention #30 tabs PHYSICAL EXAM AT DISCHARGE Vital Signs: 131/95, p 85 General Appearance: positive No acute distress and Alert Respiratory: positive No respiratory distress Cardiovascular: positive Regular rate & rhythm Abdomen: positive Non-tender, No distention and Other (wound healing well.) Skin: positive Color nml Extremities: positive Non-tender and No pedal edema Neurologic/Psychiatric: positive Oriented x3 and Mood/affect nml LABS 01/08/25 20:33 01/08/25 05:45 SEPSIS Current Stage of Sepsis: Ruled out Possible source of Sepsis: Genitourinary Sepsis Criteria: Recorded Temperature greater than 38.3C or Less than 36C and WBC count greater than 12,000 or less than 4000 FOLLOW UP Follow Up: in office in a few days. TIME SPENT Time Spent in Discharge (Minutes): 35 Discharge Plan Discharge Patient Disposition: CORRECTION, Self Care Prescriptions: Continued ferrous sulfate [FeroSul] 325 mg (65 mg iron) tablet 325 mg PO Q OTHER DAY Qty: 90 4RF Rx Instructions: best if taken in the morning. docusate sodium [Colace] 100 mg capsule 100 mg PO BID PRN (Reason: constipation) Qty: 60 1RF simethicone [Gas Relief (simethicone)] 125 mg tablet,chewable 125 mg PO QID PRN (Reason: abdominal distention) Qty: 30 3RF ibuprofen 600 mg tablet 600 mg PO Q6H PRN (Reason: pain) Qty: 30 1RF acetaminophen 325 mg capsule 325 - 650 mg PO Q4H PRN (Reason: pain) Qty: 60 1RF PNV no.154-iron fumarate-folic 27 mg iron- 1 mg tablet 1 tab PO .daily Qty: 90 4RF fluticasone propionate [Flonase Allergy Relief] 50 mcg/actuation spray,suspension 1 spray intranasal QDAY PRN (Reason: allergy symptoms) Rx Instructions: administer into each nostril loratadine [Claritin] 10 mg tablet 10 mg PO Q24H No Action nifedipine 30 mg tablet extended release 30 mg PO BID Qty: 60 2RF Activity Restrictions/Additional Instructions: no lifting more than 15 pounds for 6 weeks. Diet: Regular Print Language: Wolof Patient Instructions: Section Dc Report called to and time (if no answer, doc. time of each call attempted): no Vitals documented within 30 minutes of discharge?: Yes"
== END 2025-01-10 11:00 | disposition home or self-care (01) | DRG 786 ==
LOC: WFO 17:18 → FBP 17:18
PROVIDERS: ADMIT Obstetrics & Gynecology; ATTEND Obstetrics & Gynecology